=== PATIENT | male | born 1995 | race Two or more races ===

== ENCOUNTER 2024-07-10 17:17 | Emergency (ER) | payer MEDICAID, SELFPAY ==
--- NOTE | ~2024-07-10 | US_ITS ---
EXAMINATION: US ABDOMEN LIMITED CLINICAL INFORMATION: Right upper quadrant pain, leukocytosis and elevated LFTs.. COMPARISON: None available. TECHNIQUE: Real-time imaging of the right upper quadrant abdominal viscera. FINDINGS: PANCREAS: Visualized mid body of the pancreas is homogeneous in echotexture. LIVER: The liver is normal in size. The liver contour is normal. Parenchymal echogenicity is increased No focal hepatic lesion. There is no intrahepatic biliary duct dilatation seen. GALLBLADDER: The gallbladder is physiologically distended without evidence of stones, sludge, polyps, wall thickening or pericholecystic fluid. COMMON BILE DUCT: Normal in caliber measuring 0.3 cm in diameter. RIGHT KIDNEY: No hydronephrosis. No renal calculi or focal parenchymal lesions. The kidney measures 10.2 cm in maximum dimension. FREE FLUID: None. US/US abdomen limited IMPRESSION: Mild increased liver echogenicity but no focal lesion or intrahepatic ductal dilation. Gallbladder, right kidney and CBD appears unremarkable. The pancreas is suboptimally seen. Electronically signed by: Nirmal Enciso MD 07/10/2024 09:28 PM EST RP
[2024-07-10 17:23] VITALS: BP 130/98; PULSE 102; O2SAT 98
[2024-07-10 17:24] VITALS: BP 133/83; PULSE 103; RESP 18; TEMP 36.2; O2SAT 96; BMI 30.4
--- NOTE | 2024-07-10 17:36 | PC.NURSE ---
Pt. is reporting SI, citing he is sad because his girlfriend cheated on him . formula weigher aware and pt. changed over. regulatory attorney sitting as 1:1 observer.
--- NOTE | 2024-07-10 17:48 | PC.NURSE ---
Pt. changed over by cloud security architect. Per security, pt.'s belongings are inventoried and locked in the closet between the Pod and main ED.
--- NOTE | 2024-07-10 17:50 | PC.NURSE ---
garden consultant as 1:1
--- NOTE | 2024-07-10 18:18 | ECG_ITS ---
Test Reason : CHEST PAIN Blood Pressure : / mmHG Vent. Rate : 077 BPM Atrial Rate : 077 BPM P-R Int : 156 ms QRS Dur : 082 ms QT Int : 362 ms P-R-T Axes : 038 010 015 degrees QTc Int : 409 ms Normal sinus rhythm Normal ECG No previous ECGs available Referred By: Tawana Piper Electronically Signed By:WILLIAN PAYAN
[2024-07-10 18:48] LABS: Basophils Absolute Auto 0.1 X10*3/uL (0.0-0.2); Basophils Percent Auto 0.9 % (0-2); Eosinophils Absolute Auto 0.2 X10*3/uL (0.0-0.4); Eosinophils Percent Auto 1.7 % (0-4); Hematocrit 46.6 % (42.0-52.0); Hemoglobin 17.4 g/dl (14.0-18.0); Imm Gran Abs Auto 0.05 X10*3/uL (0.00-0.03); Imm Gran Pct Auto 0.4 % (0.0-0.4); Lymphocytes Absolute Auto 1.7 X10*3/uL (1.2-4.9); Lymphocytes Percent Auto 13.5 % (20-40); MANUAL DIFF FLAG SCAN; Mean Corpuscular HGB Conc 37.3 g/dl (31.0-36.0); Mean Corpuscular Hemoglobin 30.8 pg (27.0-33.0); Mean Corpuscular Volume 82.5 fL (80.0-98.0); Monocytes Absolute Auto 1.5 X10*3/uL (0.1-1.2); Monocytes Percent Auto 12.2 % (2-11); Neutrophils Percent Auto 71.3 % (45-73); Platelet Count 339 X10*3/uL (160-400); Red Blood Count 5.65 X10*6/uL (4.60-5.80); Red Cell Distribution Width 11.5 % (11.0-16.0); SCAN SMEAR FLAG 1; White Blood Count 12.6 X10*3/uL (4.8-10.8)
[2024-07-10 19:06] LABS: Ethanol < 10 mg/dL
[2024-07-10 19:10] LABS: Alanine Aminotransferase 51 U/L (0-40); Albumin Level 4.7 g/dL (3.5-5.0); Alkaline Phosphatase 89 U/L (39-117); Anion Gap 12 (12-20); Aspartate Amino Transferase 40 U/L (5-37); Bilirubin Total 3.9 mg/dL (0.0-1.0); Blood Urea Nitrogen 13 mg/dL (9-16); Calcium 9.4 mg/dL (8.4-10.2); Carbon Dioxide 27 mmol/L (22-29); Chloride 103 mmol/L (96-108); Creatinine Clr Calc Pharmacy 117.9; Estimated Glomerular Filt Rate > 60; Glucose Random 107 mg/dL (60-115); Potassium 3.6 mmol/L (3.3-5.1); Sodium 138 mmol/L (135-145); Total Protein 8.4 g/dL (6.5-8.0)
[2024-07-10 19:17] LABS: SLIDE REVIEW VERIFIED
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
[2024-07-10 22:36] VITALS: BP 115/81; PULSE 77; RESP 16; TEMP 36.8; O2SAT 98
[2024-07-10 22:57] LABS: Appearance Urine Clear; Color Urine Dark Yellow; Glucose Urine UA Negative (Negative); Leukocyte Esterase Urine Trace (Negative); Nitrite Urine Positive (Negative); PH 5.5 (5.0-9.0); Specific Gravity - Urine >= 1.030 (1.005-1.025); UMIC TRIGGER UACC YES; Urine Blood Trace (Negative); Urine Ketones Trace mg/dL (Negative); Urine Protein 30 (1+) mg/dL (Neg-Trace)
[2024-07-10 23:03] LABS: Amphetamine Screen Urine Not Detected (Not Detect); Barbiturates, Urine Not Detected (Not Detect); Benzodiazepines Screen Urine Not Detected (Not Detect); Buprenorphine Scr Not Detected (Not Detect); Cannabinoid Screen Urine Not Detected (Not Detect); Cocaine Screen Urine Not Detected (Not Detect); Fentanyl, urine Not Detected (Not Detect); Methadone Screen, Urine Not Detected (Not Detect); Opiate Screen Urine Not Detected (Not Detect); Oxycodone Screen Urine Not Detected (Not Detect); Phencyclidine Screen Urine Not Detected (Not Detect)
[2024-07-10 23:08] LABS: Bacteria Urine None Seen (None Seen); Calcium Oxalate Crystals Urine Present; RBC Urine 0-2 /HPF (0-2); Squamous Epithelial Cell Urine 0-2 /HPF (0-2); UACC Culture Trigger YES; WBC Urine 0-5 /HPF (0-5)
[2024-07-11] MEDS: Sulfamethox/Trimeth 800/160 TABLET 1 TAB PO (03:07)
--- NOTE | 2024-07-11 06:13 | PC.NURSE ---
Patient slept through the night, no distress observed/reported, currently not on any medication, VSS, patient was assessed by care team, disposition is CANDICE follow up, behavior pleasant, meds and meals compliant, will continue to monitor
[2024-07-11 06:26] VITALS: BP 139/82; PULSE 99; RESP 17; TEMP 36.8; O2SAT 97
--- NOTE | 2024-07-11 08:37 | MHC.CARE ---
Financially counseling emailed to meet with Pt for insurance as he is self pay at this time.
--- NOTE | 2024-07-11 08:54 | PC.NURSE ---
CARE team speaking with pt at this time
--- NOTE | 2024-07-11 09:35 | MHC.CARE ---
Pt does not meet [facility] at this time. He denies SI, HI, and A/V/H. A bed was secured for Pt at the [facility] and he is in agreement with this. Pt will be provided a Lyft ride to the [place] [facility]. Provider in agreement.
[2024-07-11 09:53] VITALS: BP 139/82; PULSE 99; RESP 17; TEMP 36.8; O2SAT 97
--- NOTE | 2024-07-11 10:41 | PC.NURSE ---
Pt called to arrange for antibiotic seed cone picker as he was d/c'd w/o antibiotics for UTI, Dr Norton aware. Pt agreeable to [facility] [address]
== END 2024-07-11 10:20 | disposition home or self-care (01) ==
PROVIDERS: Emergency Provider Emergency Medicine
DX: F33.1 Major depressive disorder, recurrent, moderate (principal); R45.851 Suicidal ideations; R10.2 Pelvic and perineal pain; Z59.02 Unsheltered homelessness; Z51.81 Encounter for therapeutic drug level monitoring; Z79.899 Other long term (current) drug therapy
CPT/HCPCS: 36415; 76705; 80053; 80307; 81001; 85025; 87086; 93005; 99285; S9485

== ENCOUNTER → 2024-07-10 18:18 | Outpatient (BNV) | payer SELFPAY | PROVIDERS: Emergency Provider Emergency Medicine; Visit Provider Internal Medicine | DX: R07.9 Chest pain, unspecified (principal) | CPT/HCPCS: 93010 ==

== ENCOUNTER 2024-08-07 16:47 | Emergency (ER) | payer OTHER, SELFPAY ==
[2024-08-07 17:00] VITALS: BP 125/90; BP 130/88; PULSE 81; PULSE 88; RESP 17; TEMP 36.9; O2SAT 96; O2SAT 99; BMI 30.9
--- NOTE | 2024-08-07 17:05 | ECG_ITS ---
Test Reason : WEAKNESS Blood Pressure : */* mmHG Vent. Rate : 74 BPM Atrial Rate : 74 BPM P-R Int : 134 ms QRS Dur : 72 ms QT Int : 356 ms P-R-T Axes : 21 27 28 degrees QTcB Int : 395 ms Normal sinus rhythm Normal ECG When compared with ECG of 10-Jul-2024 18:37, No significant change was found Referred By: Generic ED Physician Electronically Signed By: Linus Poe
[2024-08-07 17:41] LABS: MANUAL DIFF FLAG NO
[2024-08-07 17:42] LABS: Basophils Absolute Auto 0.1 X10*3/uL (0.0-0.2); Basophils Percent Auto 0.9 % (0-2); Eosinophils Absolute Auto 0.1 X10*3/uL (0.0-0.4); Eosinophils Percent Auto 0.7 % (0-4); Hematocrit 45.1 % (42.0-52.0); Hemoglobin 16.2 g/dl (14.0-18.0); Imm Gran Abs Auto 0.05 X10*3/uL (0.00-0.03); Imm Gran Pct Auto 0.5 % (0.0-0.4); Lymphocytes Absolute Auto 1.2 X10*3/uL (1.2-4.9); Lymphocytes Percent Auto 11.4 % (20-40); Mean Corpuscular HGB Conc 35.9 g/dl (31.0-36.0); Mean Corpuscular Hemoglobin 30.5 pg (27.0-33.0); Mean Corpuscular Volume 84.9 fL (80.0-98.0); Mean Platelet Volume 9.3 fL (9.4-12.4); Monocytes Absolute Auto 0.9 X10*3/uL (0.1-1.2); Monocytes Percent Auto 8.5 % (2-11); Neutrophils Absolute Auto 8.2 x10*3/uL (2.0-8.3); Platelet Count 274 X10*3/uL (160-400); Red Blood Count 5.31 X10*6/uL (4.60-5.80); Red Cell Distribution Width 11.9 % (11.0-16.0); White Blood Count 10.5 X10*3/uL (4.8-10.8)
--- NOTE | 2024-08-07 17:44 | PC.NURSE ---
pt from home, presents with global weakness, slow to respond. reports he saw his mom today who from a CVA last year per pt. pt is tearful. he reports that he is scared he has schizophrenia. notified DO Zaid of pts presentation, neuros intact but minimal responsiveness. unsure if behavioral response.
--- NOTE | 2024-08-07 17:48 | ED_ITS ---
HPI - Weakness General Chief complaint: Weakness Stated complaint: TREMORS Time Seen by Provider: 08/07/24 17:14 Source: patient Mode of arrival: EMS Limitations: no limitations History of Present Illness HPI Narrative: 29-year-old male presents emergency department with question of tremors and hallucinations. He states he lost his mom last year in November and had a bad strained relationship and he never told her how he felt. Patient states today he was at home and he felt like he saw her and talked to her and she told him she still lift him initially became very emotional who arrived here similar to his presentation last month where he was not moving any of his extremities he complain of global weakness inability to even open his tongue he denies any falls injuries he denies chest pain or shortness breath he denies any cough he denies any drug use or changes in medications his symptoms were much worse when he initially arrived and improved gradually the after being seen he was worried that he was having a stroke in his blood sugar is low his blood sugar has been stable here we did feed the patient and he has no signs of a stroke with just generalized weakness everywhere Complaint: generalized weakness Related Data Home Medications ?Medication ?Instructions ?Recorded ?Confirmed No Known Home Meds 07/11/24 07/11/24 Allergies Allergy/AdvReac Type Severity Reaction Status Date / Time No Known Allergies Allergy Verified 08/07/24 17:02 Review of Systems 2 Review of Systems: Review of systems: General: Generalized weakness Patient denies any fever chills recent illness or falls Musculoskeletal: Denies back pain or body aches or other injuries HEENT: denies headache, runny nose, ear pain Respiratory: denies shortness of breath, cough Cardiovascular: no chest pain or palpitations : denies dysuria, frequency Abdomen: no nausea vomiting denies abdominal pain Extremities: no swelling, no pain Skin: no diaphoresis Yes all other systems are reviewed and are negative [facility] Social History Social History Smoked in Last 30 Days: Yes Use of substances other than those prescribed or required for medical reasons: No Advance Directives: No Advance Directives Information Provided: No Do you have a plan to hurt others: No Plan Physical Exam 2 Vital Signs: Vital Signs: Last Vital Signs Temp 98.0 F 08/07/24 19:22 Pulse 83 08/07/24 19:22 Resp 18 08/07/24 19:22 BP 121/77 08/07/24 19:22 Pulse Ox 97 08/07/24 19:22 O2 Del Method Room Air 08/07/24 19:22 BMI result Body Mass Index 30.9 Neurological exam: CN II- XII tested. Patient is alert and oriented to person place and time. Patient has no dysphagia or dysarthia, denies good vision in all four vision mckinney no nystagmus on exam, good strength to upper and lower extremities with normal reflexes to brachioradialis, wrist, patella and achilles. Negative romberg, good finger to nose and heel to horta. General: Well-appearing well-nourished in no signs of distress HEENT: Normocephalic atraumatic Neck: No signs of JVD, no masses no tenderness or lymphadenopathy Cardiovascular: Regular rate and rhythm Respiratory: Clear to auscultation bilaterally Abdomen: Soft nontender no masses Extremities: Normal pedal pulses no signs of edema Skin: Dry warm no rashes Back: No tenderness full ROM Course Course Course Narrative: Patient seen by care team patient denies SI or HI patient only was asking for social security and was not complaining of any focal symptoms to them I do feel comfortable discharging the patient home have the patient follow up with his doctor for Medical Decision Making Medical Decision Making MDM Narrative: Has a completely normal neuro exam patient is a stroke but with global symptoms is very unlikely there was nothing that is one-sided or asymmetric on the patient he looks well has completely normal vitals and was here for similar less than a month ago. I do feel comfortable just checking labs I think the patient would benefit from behavioral health evaluation Differential Diagnosis Differential Diagnoses: The differential diagnosis associated with the presentation includes Weakness dehydration acute psychosis depression anxiety electrolyte abnormality Consult Healthcare Provider Management of the patient was discussed with: Hospitalist and Behavioral Health Provider Lab Data [facility] Lab Attestation statement: I reviewed the patient's lab results. 08/07/24 17:34 08/07/24 17:34 Labs: Lab Results 08/07/24 08/07/24 Range/Units 17:34 18:53 WBC 10.5 (4.8-10.8) X10*3/uL RBC 5.31 (4.60-5.80) X10*6/uL Hgb 16.2 (14.0-18.0) g/dl Hct 45.1 (42.0-52.0) % MCV 84.9 (80.0-98.0) fL MCH 30.5 (27.0-33.0) pg MCHC 35.9 (31.0-36.0) g/dl RDW 11.9 (11.0-16.0) % Plt Count 274 (160-400) X10*3/uL MPV 9.3 L (9.4-12.4) fL Immature Gran % (Auto) 0.5 H (0.0-0.4) % Neut % (Auto) 78.0 H (45-73) % Lymph % (Auto) 11.4 L (20-40) % [place] % (Auto) 8.5 (2-11) % Eos % (Auto) 0.7 (0-4) % Baso % (Auto) 0.9 (0-2) % Lymph # (Auto) 1.2 (1.2-4.9) X10*3/uL [place] # (Auto) 0.9 (0.1-1.2) X10*3/uL Eos # (Auto) 0.1 (0.0-0.4) X10*3/uL Baso # (Auto) 0.1 (0.0-0.2) X10*3/uL Abs Immat Gran (auto) 0.05 H (0.00-0.03) X10*3/uL Absolute Neuts (auto) 8.2 (2.0-8.3) x10*3/uL Absolute Nucleated RBC 0.000 (0.0-0.012) X10*3/uL Nucleated RBC % (auto) 0.0 (0.0-0.2) /100WBC Sodium 142 (135-145) mmol/L Potassium 4.2 (3.3-5.1) mmol/L Chloride 111 H (96-108) mmol/L Carbon Dioxide 28 (22-29) mmol/L Anion Gap 7 L (12-20) BUN 10 (9-16) mg/dL Creatinine 0.79 (0.5-1.4) mg/dL Estim Creat Clear Calc 150.6 Estimated GFR > 60 Random Glucose 100 (60-115) mg/dL Lactic Acid 1.4 (0.5-2.0) mmol/L Calcium 9.2 (8.4-10.2) mg/dL Magnesium 2.1 (1.6-2.6) mg/dL Total Bilirubin 2.1 H (0.0-1.0) mg/dL AST 23 (5-37) U/L ALT 31 (0-40) U/L Alkaline Phosphatase 83 (39-117) U/L Troponin I High Sens < 2.7 (<3.5-35.0) ng/L Total Protein 7.7 (6.5-8.0) g/dL Albumin 4.4 (3.5-5.0) g/dL Lipase 15 (8-78) U/L Urine Color Yellow Urine Appearance Clear Urine pH 7.5 (5.0-9.0) Ur Specific [place] 1.020 (1.005-1.025) Urine Protein Negative (Neg-Trace) mg/dL Urine Glucose (UA) Negative (Negative) mg/dL Urine Ketones Negative (Negative) mg/dL Urine Blood Negative (Negative) Urine Nitrite Negative (Negative) Ur Leukocyte Esterase Negative (Negative) Urine Opiates Screen Not Detected (Not Detect) Ur Buprenorphine Scrn Not Detected (Not Detect) ng/mL Ur Oxycodone Screen Not Detected (Not Detect) ng/mL Urine Methadone Screen Not Detected (Not Detect) ng/mL Urine Fentanyl Screen Not Detected (Not Detect) Ur Barbiturates Screen Not Detected (Not Detect) Ur Phencyclidine Scrn Not Detected (Not Detect) Ur Amphetamines Screen Not Detected (Not Detect) U Benzodiazepines Scrn Not Detected (Not Detect) Urine Cocaine Screen Not Detected (Not Detect) U Marijuana (THC) Screen Not Detected (Not Detect) Influenza Type A (PCR) NEGATIVE (Negative) Influenza Type B (PCR) NEGATIVE (Negative) RSV RNA Qual (PCR) NEGATIVE (Negative) SARS-CoV-2 RNA (RT-PCR) NEGATIVE (Negative) External Record Review External record reviewed: Inpatient record, Office record, Outpatient record and Prior outpatient labs Discharge Plan Discharge Clinical Impression: Hallucination, Acute dehydration, Weakness Patient Disposition: Home, Self-Care Instructions: Hallucinations (ED), Dehydration (ED), Weakness (ED) Additional Instructions: You were seen today for global weakness. You did not have a stroke. I do think this is related to anxiety and depression. Please call follow up with outpatient therapy Prescriptions: No Action No Known Home Meds Print Language: Cambodian
[2024-08-07 18:03] LABS: Lactic Acid 1.4 mmol/L (0.5-2.0)
[2024-08-07 18:05] LABS: Alanine Aminotransferase 31 U/L (0-40); Albumin Level 4.4 g/dL (3.5-5.0); Alkaline Phosphatase 83 U/L (39-117); Anion Gap 7 (12-20); Aspartate Amino Transferase 23 U/L (5-37); Bilirubin Total 2.1 mg/dL (0.0-1.0); Blood Urea Nitrogen 10 mg/dL (9-16); Calcium 9.2 mg/dL (8.4-10.2); Carbon Dioxide 28 mmol/L (22-29); Chloride 111 mmol/L (96-108); Creatinine Clr Calc Pharmacy 150.6; Estimated Glomerular Filt Rate > 60; Glucose Random 100 mg/dL (60-115); Lipase 15 U/L (8-78); Magnesium 2.1 mg/dL (1.6-2.6); Potassium 4.2 mmol/L (3.3-5.1); Sodium 142 mmol/L (135-145); Total Protein 7.7 g/dL (6.5-8.0)
[2024-08-07 18:17] LABS: Troponin-I High Sensitivity < 2.7 ng/L (<3.5-35.0)
[2024-08-07 18:21] LABS: Influenza A PCR NEGATIVE (Negative); Influenza B PCR NEGATIVE (Negative); Resp Syncy Virus RNA Qual PCR NEGATIVE (Negative); SARS COV2 PCR INHOUSE NEGATIVE (Negative)
[2024-08-07 19:04] LABS: Appearance Urine Clear; Color Urine Yellow; Glucose Urine UA Negative (Negative); Leukocyte Esterase Urine Negative (Negative); Nitrite Urine Negative (Negative); PH 7.5 (5.0-9.0); Urine Blood Negative (Negative); Urine Ketones Negative (Negative); Urine Protein Negative (Neg-Trace)
[2024-08-07 19:12] LABS: Amphetamine Screen Urine Not Detected (Not Detect); Barbiturates, Urine Not Detected (Not Detect); Benzodiazepines Screen Urine Not Detected (Not Detect); Buprenorphine Scr Not Detected (Not Detect); Cannabinoid Screen Urine Not Detected (Not Detect); Cocaine Screen Urine Not Detected (Not Detect); Fentanyl, urine Not Detected (Not Detect); Methadone Screen, Urine Not Detected (Not Detect); Opiate Screen Urine Not Detected (Not Detect); Oxycodone Screen Urine Not Detected (Not Detect); Phencyclidine Screen Urine Not Detected (Not Detect)
[2024-08-07 19:22] VITALS: BP 121/77; PULSE 83; RESP 18; TEMP 36.7; O2SAT 97
--- NOTE | 2024-08-07 19:23 | MHC.EDTECH ---
This tech took over care of pt at 1900,rounded and introduced self to pt,vitals taken,emptied 250MLS from urinal,pt appears comfortable,resting quietly family at bedside,call sarah in reach
[2024-08-07] MEDS: Acetaminophen 325 MG TABLET 650 MG PO (20:20)
[2024-08-07 20:21] VITALS: BP 111/59; PULSE 75; RESP 16; TEMP 36.6; O2SAT 97
[2024-08-07 20:29] VITALS: BP 111/59; PULSE 75; RESP 16; TEMP 36.6; O2SAT 97
--- NOTE | 2024-08-07 21:03 | MHC.CARE ---
[facility] referral completed and faxed over. [facility] confirms referral was received and will be reviewed.
== END 2024-08-07 20:40 | disposition home or self-care (01) ==
PROVIDERS: Emergency Provider Student in an Organized Health Care Education/Training Program
DX: R44.3 Hallucinations, unspecified (principal); E86.0 Dehydration; R53.1 Weakness; Z03.818 Encounter for observation for suspected exposure to other biological agents ruled out; F32.A Depression, unspecified; F43.29 Adjustment disorder with other symptoms; F90.9 Attention-deficit hyperactivity disorder, unspecified type; F41.9 Anxiety disorder, unspecified; Z87.891 Personal history of nicotine dependence
CPT/HCPCS: 0241U; 80053; 80307; 81003; 83605; 83690; 83735; 84484; 85025; 93005; 99285; S9485

== ENCOUNTER → 2024-08-07 17:05 | Outpatient (BNV) | payer OTHER, SELFPAY | PROVIDERS: Emergency Provider Student in an Organized Health Care Education/Training Program; Visit Provider Internal Medicine Cardiovascular Disease | DX: R53.1 Weakness (principal) | CPT/HCPCS: 93010 ==

== ENCOUNTER 2024-08-20 09:50 | Inpatient (IN) | payer OTHER, SELFPAY ==
[2024-08-20] VITALS (9 sets, daily range): BP systolic 112–139; BP diastolic 59–86; PULSE 82–123; RESP 17–24; TEMP 36.3–38.7; O2SAT 95–99; BMI 31.6
--- NOTE | ~2024-08-20 | XR_ITS ---
EXAMINATION: XR CHEST CLINICAL INFORMATION: cough, sob COMPARISON: None available. TECHNIQUE: 2 views of the chest were obtained. FINDINGS: The cardiac, hilar, and mediastinal contours are normal. There are low lung volumes, with mild bronchovascular crowding in the perihilar regions and lower lobes. Within these confines, there is no focal opacity to suggest pneumonia. Suggestion of mild diffuse peribronchial thickening. There is no pneumothorax or pleural effusion. There is no focal osseous or soft tissue abnormality. XR/XR chest 2V IMPRESSION: 1. Low lung volumes, with bronchovascular crowding in the hilar regions and lower lungs. Suggestion of diffuse mild peribronchial thickening. 2. No focal pneumonia or effusion. Electronically signed by: Edson Morton MD 08/20/2024 11:20 AM [facility]
--- NOTE | 2024-08-20 10:11 | ECG_ITS ---
Test Reason : TACHYCARDIA/SOB Blood Pressure : */* mmHG Vent. Rate : 113 BPM Atrial Rate : 113 BPM P-R Int : 144 ms QRS Dur : 70 ms QT Int : 294 ms P-R-T Axes : 45 20 38 degrees QTcB Int : 403 ms Sinus tachycardia Otherwise normal ECG When compared with ECG of 07-Aug-2024 17:19, Vent. rate has increased by 39 bpm Referred By: Rebekah Yang Electronically Signed By: WILLIAN PAYAN
--- NOTE | 2024-08-20 10:22 | ED_ITS ---
HPI - General Adult General Chief complaint: Nausea/Vomiting/Diarrhea Stated complaint: DIZZY,WEAK SINCE T-1 FROM CLINIC PER EMS Time Seen by Provider: 08/20/24 09:54 Source: patient, EMS, RN notes reviewed and old records reviewed Mode of arrival: EMS History of Present Illness ED Provider: Rebekah Yang PA-C HPI narrative: 29-year-old male with no significant past medical history presenting to the ED via EMS from [facility] complaining of lightheadedness, dizziness, CP, SOB, productive cough, fever, abdominal pain, nausea, vomiting, diarrhea x yesterday. Denies taking any medications today. Admits suzette is home sick with similar symptoms. Denies recent travel, suspicious food intake, pedal edema Related Data Home Medications ?Medication ?Instructions ?Recorded ?Confirmed No Known Home Meds 07/11/24 07/11/24 Allergies Allergy/AdvReac Type Severity Reaction Status Date / Time No Known Allergies Allergy Verified 08/20/24 10:04 Review of Systems 2 Review of Systems: Yes all other systems are reviewed and are negative Constitutional: Constitutional: Reports as per HPI Neurologic: Denies Abnormal speech present [facility] Past Medical History Attestation statement: The following information was validated with the patient. Source: old records reviewed Medical History (Updated 08/20/24 @ 12:28 by KIMBER Gonsalez) Depression Anxiety ADHD Social History Social History Smoked in Last 30 Days: Yes Use of substances other than those prescribed or required for medical reasons: No Advance Directives: No Advance Directives Information Provided: Yes Do you have a plan to hurt others: No Plan Physical Exam ED Vital Signs: Vital Signs - 24 hr 08/20/24 09:59 08/20/24 10:03 Temperature 101.7 F H 100.7 F H Pulse Rate 123 H 123 H Respiratory Rate 23 H 18 Blood Pressure 126/86 126/86 Pulse Oximetry 97 97 Oxygen Delivery Method Nasal Cannula Nasal Cannula Oxygen Flow Rate 3 BMI result Body Mass Index 31.6 Const General: cooperative, healthy appearing and no acute distress Orientation/consciousness: patient oriented x3 Limitations: no limitations HENMT Head: Yes normal to inspection and Yes atraumatic Ears: hearing grossly normal bilaterally General nose exam: Normal external nose present Face and sinus: Yes normal facial exam Mouth: Normal oral and palatal mucosa present and no drooling Throat: Yes posterior oropharynx normal and Yes uvula midline Eyes General: appearance normal, both eyes and all related structures EOM: EOMs intact bilaterally Neck Neck: Yes normal visual inspection and Yes no meningeal signs Resp Effort & Inspection: normal respiratory effort and no respiratory distress Auscultation: clear to auscultation bilaterally and no wheezes Cardio Rate: regular rate and tachycardic Heart sounds: S1 normal heart sound present and S2 normal heart sound present GI Inspection: Yes normal to inspection Palpation (GI): Soft to palpation, Tenderness to palpation present (GI) (Diffusely) with no rebound tenderness, no guarding and not rigid Skin Rashes: no rashes Wounds: no wounds Neuro General: patient oriented x3, tone normal, moves all extremities, no meningeal signs, no focal motor deficits and CN's II-XI intact bilaterally Cranial nerves: Yes CN's II-XII intact bilaterally and Yes Bilaterally intact EOM present Cognition (Neuro): normal cognition Speech: No Abnormal speech present Motor exam (neuro): 5/5 motor strength present throughout Extrem General: Yes normal to inspection and Yes no pedal edema Course Course Course Narrative: -1119--no leukocytosis. D-dimer 214 > PE unlikely -lactic acidosis 3.2 > will give IVF and repeat. Troponin negative. -influenza A positive > Tamiflu ordered -1136--on re-evaluation abdomen is soft and nontender. No CT indicated at this time. Medications Administered Discontinued Medications Generic Name Dose Route Start Last Admin Trade Name Freq PRN Reason Stop Dose Admin Acetaminophen 650 mg 08/20/24 10:27 08/20/24 11:18 Acetaminophen 325 Mg Tablet PO 08/20/24 10:28 650 mg ONCE ONE Administration Ceftriaxone Sodium 1 gm 08/20/24 10:11 08/20/24 10:28 Ceftriaxone Sodium 1 Gm Vial IVPUSH 08/20/24 10:12 1 gm ONCE ONE Administration Sodium Chloride 1,000 mls @ 999 mls/hr 08/20/24 10:15 08/20/24 11:38 Ns IV 08/20/24 11:15 Infused .Q1H1M ZAINAB Infusion Sodium Chloride 1,000 mls @ 999 mls/hr 08/20/24 11:00 08/20/24 12:21 Ns IV 08/20/24 12:00 Infused .Q1H1M ZAINAB Infusion Oseltamivir Phosphate 75 mg 08/20/24 11:14 08/20/24 12:00 Oseltamivir Phosphate 75 Mg Capsule PO 08/20/24 11:15 75 mg ONCE ONE Administration Medical Decision Making Medical Decision Making [facility] Narrative: 29-year-old male with no significant past medical history presenting to the ED via EMS from [facility] complaining of lightheadedness, dizziness, CP, SOB, productive cough, fever, abdominal pain, nausea, vomiting, diarrhea x yesterday. On exam tachycardic, tachypneic, febrile to 101.7, hypoxic 90% on RA, lungs CTA, abdomen soft diffusely tender, no pedal edema. Concern for viral illness vs pneumonia vs bronchitis vs intra-abdominal pathology including pancreatitis/cholecystitis/lithiasis, appendicitis/diverticulitis or gastroenteritis. PE on differential. Lower suspicion for DVT or dissection Plan: EKG, labs, UA, CXR, viral testing, +/-CT AP, +/-CTA, ED bronch protocol, empiric IV antibiotics, IVF, anticipate admission Please refer to course for remaining clinical decision making, interpretation of labs/imaging results, and discussions with consultants and/or family members. Differential Diagnosis Differential Diagnoses: The differential diagnosis associated with the presentation includes As above Admission/Observation Consideration of admission/observation: Escalation of care including admission/observation considered Consult Healthcare Provider Management of the patient was discussed with: Hospitalist Lab Data [facility] Lab Attestation statement: I reviewed the patient's lab results. 08/20/24 10:17 08/20/24 10:17 Labs: Lab Results 08/20/24 08/20/24 08/20/24 Range/Units 10:17 10:18 10:25 WBC 7.7 (4.8-10.8) X10*3/uL RBC 5.20 (4.60-5.80) X10*6/uL Hgb 15.9 (14.0-18.0) g/dl Hct 44.4 (42.0-52.0) % MCV 85.4 (80.0-98.0) fL MCH 30.6 (27.0-33.0) pg MCHC 35.8 (31.0-36.0) g/dl RDW 11.9 (11.0-16.0) % Plt Count 257 (160-400) X10*3/uL MPV 9.3 L (9.4-12.4) fL Immature Gran % (Auto) 0.3 (0.0-0.4) % Neut % (Auto) 75.3 H (45-73) % Lymph % (Auto) 10.5 L (20-40) % [place] % (Auto) 13.2 H (2-11) % Eos % (Auto) 0.1 (0-4) % Baso % (Auto) 0.6 (0-2) % Lymph # (Auto) 0.8 L (1.2-4.9) X10*3/uL [place] # (Auto) 1.0 (0.1-1.2) X10*3/uL Eos # (Auto) 0.0 (0.0-0.4) X10*3/uL Baso # (Auto) 0.1 (0.0-0.2) X10*3/uL Abs Immat Gran (auto) 0.02 (0.00-0.03) X10*3/uL Absolute Neuts (auto) 5.8 (2.0-8.3) x10*3/uL Absolute Nucleated RBC 0.000 (0.0-0.012) X10*3/uL Nucleated RBC % (auto) 0.0 (0.0-0.2) /100WBC PT 19.2 H (10.9-12.4) SEC INR 1.6 H (0.9-1.1) D-Dimer High Sensitivty 214 NG/ML VBG pH 7.42 (7.32-7.43) VBG pCO2 36 mmHg VBG pO2 47 mmHg VBG HCO3 24 (22-26) mmol/L VBG O2 Saturation 83.0 % VBG Base Excess 0.0 mmol/L Sodium 138 (135-145) mmol/L Potassium 3.5 (3.3-5.1) mmol/L Chloride 108 (96-108) mmol/L Carbon Dioxide 21 L (22-29) mmol/L Anion Gap 13 (12-20) BUN 12 (9-16) mg/dL Creatinine 1.24 (0.5-1.4) mg/dL Estim Creat Clear Calc 93.9 Estimated GFR > 60 Random Glucose 139 H (60-115) mg/dL Lactic Acid 3.2 H* (0.5-2.0) mmol/L Calcium 8.9 (8.4-10.2) mg/dL Magnesium 1.9 (1.6-2.6) mg/dL Total Bilirubin 1.9 H (0.0-1.0) mg/dL Direct Bilirubin 0.5 (0.0-0.5) mg/dL AST 23 (5-37) U/L ALT 26 (0-40) U/L Alkaline Phosphatase 83 (39-117) U/L Troponin I High Sens < 2.7 (<3.5-35.0) ng/L B-Natriuretic Peptide < 10 (<100) pg/mL Total Protein 7.9 (6.5-8.0) g/dL Albumin 4.4 (3.5-5.0) g/dL Lipase 13 (8-78) U/L Influenza Type A (PCR) POSITIVE A (Negative) Influenza Type B (PCR) NEGATIVE (Negative) RSV RNA Qual (PCR) NEGATIVE (Negative) SARS-CoV-2 RNA (RT-PCR) NEGATIVE (Negative) Independent Interpretation I performed an independent interpretation of an: EKG, Plain X-Ray and CT Scan Radiology Impression Discussion of test interpretation with radiology: I have reviewed the radiologist's reading. Independent Historian Clinical information obtained from an independent historian. History obtained from or confirmed by: EMS External Record Review External record reviewed: Inpatient record, Office record, Outpatient record, Prior outpatient labs, Prior outpatient radiology, Primary care record and Outside ED record Tests considered The following testing was considered but not selected: As above Prescription Management I considered prescription management with: Pain Medication and Antibiotic Chronic Conditions Patient?s care impacted by: Other Social Determinants Patient?s care significantly limited by Social Determinants of Health including: Inadequate housing, Low income, Problems related to primary support group and Other Social Determinant of Health Critical Care Time Critical Care Time Critical Care Time: Yes Total Critical Care Time: 45 Attestation: I have personally provided critical care time exclusive of time spent on separately billable procedures. Time includes review of lab data, radiology results, discussion with consultants, and monitoring for potential decompensation. Intervention performed as documented. Discharge Plan Discharge Clinical Impression: Influenza A, Hypoxia Patient Disposition: Admitted As Inpatient
[2024-08-20 10:28] LABS: MANUAL DIFF FLAG NO
[2024-08-20] MEDS: 0.9 % Sodium Chloride 1,000 ML 999 ML IV ×2 (10:28→11:17)
[2024-08-20] MEDS: cefTRIAXone sodium 1 GM VIAL IVPUSH (10:28)
[2024-08-20 10:30] LABS: VBG HCO3 24 mmol/L (22-26); VBG pCO2 36 mmHg; VBG pH 7.42 (7.32-7.43); VBG pO2 47 mmHg
[2024-08-20 10:30] LABS: Venous Blood Gas Refer to POC result
[2024-08-20 10:34] LABS: Basophils Absolute Auto 0.1 X10*3/uL (0.0-0.2); Basophils Percent Auto 0.6 % (0-2); Eosinophils Percent Auto 0.1 % (0-4); Hematocrit 44.4 % (42.0-52.0); Hemoglobin 15.9 g/dl (14.0-18.0); Imm Gran Abs Auto 0.02 X10*3/uL (0.00-0.03); Imm Gran Pct Auto 0.3 % (0.0-0.4); Lymphocytes Absolute Auto 0.8 X10*3/uL (1.2-4.9); Lymphocytes Percent Auto 10.5 % (20-40); Mean Corpuscular HGB Conc 35.8 g/dl (31.0-36.0); Mean Corpuscular Hemoglobin 30.6 pg (27.0-33.0); Mean Corpuscular Volume 85.4 fL (80.0-98.0); Mean Platelet Volume 9.3 fL (9.4-12.4); Monocytes Percent Auto 13.2 % (2-11); Neutrophils Absolute Auto 5.8 x10*3/uL (2.0-8.3); Neutrophils Percent Auto 75.3 % (45-73); Platelet Count 257 X10*3/uL (160-400); Red Cell Distribution Width 11.9 % (11.0-16.0); White Blood Count 7.7 X10*3/uL (4.8-10.8)
[2024-08-20 10:38] LABS: INTERNATIONAL NORM RATIO 1.6 (0.9-1.1); Prothrombin Time 19.2 SEC (10.9-12.4)
[2024-08-20 10:51] LABS: Lactic Acid 3.2 mmol/L (0.5-2.0)
[2024-08-20 10:51] LABS: Alanine Aminotransferase 26 U/L (0-40); Albumin Level 4.4 g/dL (3.5-5.0); Alkaline Phosphatase 83 U/L (39-117); Anion Gap 13 (12-20); Aspartate Amino Transferase 23 U/L (5-37); Bilirubin Direct 0.5 mg/dL (0.0-0.5); Bilirubin Total 1.9 mg/dL (0.0-1.0); Blood Urea Nitrogen 12 mg/dL (9-16); Calcium 8.9 mg/dL (8.4-10.2); Carbon Dioxide 21 mmol/L (22-29); Chloride 108 mmol/L (96-108); Creatinine Clr Calc Pharmacy 93.9; Estimated Glomerular Filt Rate > 60; Glucose Random 139 mg/dL (60-115); Lipase 13 U/L (8-78); Magnesium 1.9 mg/dL (1.6-2.6); Potassium 3.5 mmol/L (3.3-5.1); Sodium 138 mmol/L (135-145); Total Protein 7.9 g/dL (6.5-8.0)
[2024-08-20 10:56] LABS: B Type Natriuretic Peptide < 10 pg/mL (<100)
[2024-08-20 11:00] LABS: Troponin-I High Sensitivity < 2.7 ng/L (<3.5-35.0)
[2024-08-20 11:08] LABS: D Dimer High Sensitivity 214 NG/ML
[2024-08-20 11:10] LABS: Influenza A PCR POSITIVE (Negative); Influenza B PCR NEGATIVE (Negative); Resp Syncy Virus RNA Qual PCR NEGATIVE (Negative); SARS COV2 PCR INHOUSE NEGATIVE (Negative)
[2024-08-20] MEDS: Acetaminophen 325 MG TABLET 650 MG PO ×2 (11:18→23:11)
--- NOTE | 2024-08-20 11:38 | PC.NURSE ---
Additional fluid bolus ordered - pending sepsis BPs
--- NOTE | 2024-08-20 11:46 | P.HPHOSP_ITS ---
History of Present Illness Date of Service: 08/20/24 Attending physician on admission: Massimo Kumar Chief Complaint: Nausea, vomiting, dizziness Pt is a 29-year-old male with PMH significant for anxiety and depression not on home meds who presents to the ED via ambulance from walk-in clinic for evaluation of N/V/D and dizziness since yesterday. Has also been experiencing SOB, productive cough, fever and chills, chest tightness/pain, and abdominal pain. Has not be able to keep any food or drink down since then. Reports family members in household have similar symptoms for past 1-2 weeks. Previous smoker without pulmonary diagnosis or home inhalers. In the ED pt was febrile up to 101.7, tachycardic up to 123, tachypneic up to 23, desatting as low as 90% at walk-in clinic. Labs were significant for testing positive for flu, creatinine 1.24 (elevated from 0.79 on 08/07/2024), lactic acid 3.2, and bilirubin 1.9. No leukocytosis. Stable H&H. No significant electrolyte abnormalities. Troponin negative. BNP negative. CXR showed diffuse mild peribronchial thickening without focal pneumonia or effusion. EKG demonstrated sinus tachycardia of 113 without any significant ischemic changes. Pt was treated with IVF, acetaminophen, empiric ceftriaxone, and Tamiflu. Pt will be admitted to the hospital under observation for treatment and further evaluation of KRUNAL in the setting of acute influenza a infection. Review of Systems 2 Review of Systems: Negative except for that which is stated in the [facility] Medical History (Updated 08/20/24 @ 12:28 by KIMBER Gonsalez) Depression Anxiety ADHD Social History Smoked in Last 30 Days: Yes Use of substances other than those prescribed or required for medical reasons: No Advance Directives: No Advance Directives Information Provided: Yes Do you have a plan to hurt others: No Plan Meds Allergies Allergy/AdvReac Type Severity Reaction Status Date / Time No Known Allergies Allergy Verified 08/20/24 10:04 Active Medications: Current Medications Sodium Chloride (Ns) 1,000 mls @ 999 mls/hr IV .Q1H1M ZAINAB Stop: 08/20/24 12:00 Last Admin: 08/20/24 11:17 Dose: 999 mls/hr Home Medications ?Medication ?Instructions ?Recorded ?Confirmed ?Last Taken ?Type No Known Home Meds 07/11/24 07/11/24 Unknown History Physical Exam 2 Vital Signs and Narrative: Vital Signs: Last Vital Signs Temp 100.7 F H 08/20/24 10:03 Pulse 123 H 08/20/24 10:03 Resp 18 08/20/24 10:03 BP 126/86 08/20/24 10:03 Pulse Ox 97 08/20/24 10:03 O2 Del Method Nasal Cannula 08/20/24 10:03 O2 Flow Rate 3 08/20/24 09:59 Oxygen Flow Rate 2 08/20/24 10:03 BMI result Body Mass Index 31.6 General: AOx3, appears weak. In no acute distress Resp: CTA bilaterally CVS: S1, S2, regular rhythm, tachycardic GI: +BS, no distention, diffusely tender Skin: Warm, dry Neuro: Cranial nerves II-XII grossly intact bilaterally. Motor grossly intact bilaterally Extremities: No edema Psych: Anxious Results Labs 08/20/24 10:17 08/20/24 10:17 Labs: Laboratory Results - last 24 hr 08/20/24 08/20/24 08/20/24 10:17 10:18 10:25 MCV 85.4 MCH 30.6 MCHC 35.8 RDW 11.9 Plt Count 257 MPV 9.3 L Immature Gran % (Auto) 0.3 Neut % (Auto) 75.3 H Lymph % (Auto) 10.5 L [place] % (Auto) 13.2 H Eos % (Auto) 0.1 Baso % (Auto) 0.6 Lymph # (Auto) 0.8 L [place] # (Auto) 1.0 Eos # (Auto) 0.0 Baso # (Auto) 0.1 Abs Immat Gran (auto) 0.02 Absolute Neuts (auto) 5.8 Absolute Nucleated RBC 0.000 Nucleated RBC % (auto) 0.0 PT 19.2 H INR 1.6 H D-Dimer High Sensitivty 214 VBG pH 7.42 VBG pCO2 36 VBG pO2 47 VBG HCO3 24 VBG O2 Saturation 83.0 VBG Base Excess 0.0 Anion Gap 13 Estim Creat Clear Calc 93.9 Estimated GFR > 60 Random Glucose 139 H Lactic Acid 3.2 H* Calcium 8.9 Magnesium 1.9 Total Bilirubin 1.9 H Direct Bilirubin 0.5 AST 23 ALT 26 Alkaline Phosphatase 83 Troponin I High Sens < 2.7 B-Natriuretic Peptide < 10 Total Protein 7.9 Albumin 4.4 Lipase 13 Influenza Type A (PCR) POSITIVE A Influenza Type B (PCR) NEGATIVE RSV RNA Qual (PCR) NEGATIVE SARS-CoV-2 RNA (RT-PCR) NEGATIVE Imaging Radiologist's Impressions: Impressions Chest X-Ray 08/20/24 10:13 IMPRESSION: 1. Low lung volumes, with bronchovascular crowding in the hilar regions and lower lungs. Suggestion of diffuse mild peribronchial thickening. 2. No focal pneumonia or effusion. Electronically signed by: Edson Morton MD 08/20/2024 11:20 AM [facility] Assessment and Plan (1) Influenza A: Status: Acute (2) KRUNAL (acute kidney injury): Status: Acute Plan Pt is a 29-year-old male with PMH significant for anxiety and depression not on home meds who presents to the ED via ambulance from walk-in clinic for evaluation of N/V/D and dizziness since yesterday. Pt will be admitted to the hospital under observation for treatment and further evaluation of KRUNAL in the setting of acute influenza a infection. Influenza a infection Pt with SOB, dizziness, N/V/D, productive abdominal pain x2 days Desatting as low at 90% on RA, currently satting at 92-93% on RA Will treat with supportive care at Tamiflu, started 08/20/2024 Titrate supplemental O2 >92, wean as tolerated KRUNAL Creatinine 1.24, elevated from 0.79 on 08/07/2024 Secondary to GI losses from flu and poor p.o. intake Pt received 2L IVF in the ED Follow creatinine Viral sepsis Tachycardia, tachypnea, and acute lactic acidosis secondary to viral flu infection CXR negative for superimposed pneumonia No indication for antibiotics at this time, treat as above Trend lactic acid Mood disorder Not on home meds, not currently following with PCP/therapis Ativan prn Encourage to establish outpatient care Full Code Attending:?Dr. Kumar DVT Prophylaxis: Lovenox Pt will be admitted to the hospital under observation for treatment and further evaluation of KRUNAL in the setting of influenza a infection. Quality Stroke Does the patient have a stroke diagnosis?: No VTE Prior VTE?: No VTE Risk Level:: Medical - moderate - high VTE Device Contraindication: Treatment Not Indicated VTE Drug Contraindication: N/A - Med Ordered
[2024-08-20] MEDS: Oseltamivir Phosphate 75 MG CAPSULE PO ×2 (12:00→23:11)
[2024-08-20 12:25] LABS: Reflex Lactate? Lactic Acid Added
--- NOTE | 2024-08-20 13:05 | PHA.MEDREC ---
Pharmacy Consult ? Medication Reconciliation Pharmacy has completed the medication reconciliation.
[2024-08-20 13:36] LABS: ~Lactic Acid-LAB USE ONLY 0.7 mmol/L (0.5-2.0)
--- OUTSIDE RECORDS SUMMARY | 2024-08-20 15:06 | XMS_ITS ---
Author Organization [facility] Address [address] [place] [phone] Care Team Providers Care Fermentation Scientist Name Role Phone No, PCP Primary Care Provider Marely Carson Unavailable [phone] REASON FOR VISIT Apply for [employer] Insurance/ Fax address verification to [facility] Social History Sex Assigned At : Social History Observation Description Sex Assigned At Male Encounters Encounter Location Date Provider Diagnosis [address] [id number] 07/19/2024 Marely Marquez Plan Of Treatment No Information Progress Notes * Blaise TOLEDO EDOB:[birth year] (29 yo M)Acc No.[id number]:07/19/2024 Case Management New Patient:?Erwin TOLEDO in E Provider:Ad Marquez :1995???Age:29 Y???Sex:Male Fernando e:07/19/2024 Address:[address] [place], [place] [id number] Pcp:PCP No Subjective: * Chief Complaints: * ???1. Apply for [facility] Insurance/ Fax address verification to [facility]. * HPI: ???Social Service:?Action Taken?SOLO? [employer] paper application was completed with client and faxed over to [facility]. Faxed proof of residency to [facility] [place] as well. gd2 07/19/24.? Objective: * Vitals:? Assessment: Plan: * Treatment: * Images: Billing Information: * Visit Code:? * Procedure Codes:? Care Plan Details* * Sign off status: Completed true * Provider:?Marely Marquez Date:?07/19/2024 Generated for Adan saha/Cb/Colt on:?08/20/2024 03:06 PM EST History and Physical Notes * HPI (History of Present Illness) Category Sub-Category Detail Notes Social Service Action Taken [facility] : [employer] p aper application was completed with client and faxed over to [facility]. Faxed proof of residency to [facility] as well. gd2 07/19/24
--- OUTSIDE RECORDS SUMMARY | 2024-08-20 15:06 | XMS_ITS | Patient Health Record ---
Author Organization [facility] Address [address] [place] [phone] Care Team Providers Care Operations Technician Name Role Phone No, PCP Primary Care Provider Marely Carson Unavailable [phone] Reason For Referral No Information Social History Sex Assigned At : Social History Observation Description Sex Assigned At Male Encounters Encounter Location Date Provider Diagnosis [address] [id number] 07/19/2024 Marely Marquez Plan Of Treatment No Information Insurance Providers Payer Name Payer Address Payer Phone Subscriber Number Group Number Insured Name Patient Relationship to Insured Coverage Start Date Coverage End Date Insurance Pending [address] [place] [id number] Blaise Toledo Self - patient is the insured
--- OUTSIDE RECORDS SUMMARY | 2024-08-20 15:06 | XMS_ITS | Continuity of Care Document ---
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 available. 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 Today we talked about your past medical history, family history, and social history.I will be your new primary care provider (Rosana LIZARRAGA).If you have any questions or concerns, please call or come back to see me. 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 I will refill the vy vanse for you today.Please call the office for refills and see me in the office in 6 months Related to Attention deficit disorder of childhood with hyperactivity STablePlease continu e the sertraline 100mg dailySee me in 6 months or sooner if you notice worsening of your moods Related to Anxiety state, unspecified Resolved.Please cont inue the back exercises 4 days per week Related to Back pain, lumbosacral STable.I will refill your medication and give you a 2 month supply.Please call the office for refills and see me in 6 months 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 VA variable. 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 ed. on increased risk of RD & symptoms. If they occur then RTC immediatly. Otherwise annual monitoring is recommended. 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
[2024-08-20 16:52] LABS: Appearance Urine Clear; Color Urine Dark Yellow; Glucose Urine UA Negative (Negative); Leukocyte Esterase Urine Negative (Negative); Nitrite Urine Negative (Negative); PH 5.5 (5.0-9.0); Specific Gravity - Urine >= 1.030 (1.005-1.025); UMIC TRIGGER UACC YES; Urine Blood Small (1+) (Negative); Urine Ketones 15 mg/dL (Negative); Urine Protein 30 (1+) mg/dL (Neg-Trace)
[2024-08-20 17:00] LABS: Bacteria Urine None Seen (None Seen); Squamous Epithelial Cell Urine 0-2 /HPF (0-2); WBC Urine 0-5 /HPF (0-5)
[2024-08-20 17:04] LABS: Amphetamine Screen Urine Not Detected (Not Detect); Barbiturates, Urine Not Detected (Not Detect); Benzodiazepines Screen Urine Not Detected (Not Detect); Buprenorphine Scr Not Detected (Not Detect); Cannabinoid Screen Urine Not Detected (Not Detect); Cocaine Screen Urine Not Detected (Not Detect); Fentanyl, urine Not Detected (Not Detect); Methadone Screen, Urine Not Detected (Not Detect); Opiate Screen Urine Not Detected (Not Detect); Oxycodone Screen Urine Not Detected (Not Detect); Phencyclidine Screen Urine Not Detected (Not Detect)
--- NOTE | 2024-08-20 17:57 | MHC.EDTECH ---
pt asked for food, pudding and jell=O given, pt stated his girlfriend will bring him soup.
[2024-08-20] MEDS: LORazepam 0.5 MG TABLET PO (23:13)
[2024-08-20] MEDS: 0.9 % Sodium Chloride Flush 3 ML SYRINGE IVFLUSH (23:16)
[2024-08-21 04:00] VITALS: BP 129/83; PULSE 76; RESP 18; TEMP 36.8; O2SAT 98
[2024-08-21 07:04] LABS: Anion Gap 15 (12-20); Blood Urea Nitrogen 12 mg/dL (9-16); Calcium 8.9 mg/dL (8.4-10.2); Carbon Dioxide 19 mmol/L (22-29); Chloride 107 mmol/L (96-108); Creatinine Clr Calc Pharmacy 143.7; Estimated Glomerular Filt Rate > 60; Glucose Random 81 mg/dL (60-115); Potassium 3.9 mmol/L (3.3-5.1); Sodium 137 mmol/L (135-145)
[2024-08-21 08:00] VITALS: BP 130/69; PULSE 92; RESP 18; TEMP 37.2; O2SAT 98
[2024-08-21] MEDS: Nicotine 21 MG PATCH.TD24 TRANSDERMA (09:45)
[2024-08-21] MEDS: 0.9 % Sodium Chloride Flush 3 ML SYRINGE IVFLUSH ×2 (09:47→23:24)
[2024-08-21] MEDS: ondansetron HCL 4 MG/2 ML VIAL IVPUSH (11:25)
[2024-08-21 12:00] VITALS: BP 113/81; PULSE 94; RESP 18; TEMP 36.8; O2SAT 98
[2024-08-21 12:17] LABS: GASOB Int Neg Ctl Valid YES; GASOB Int Pos Ctl Valid YES; Occult Blood Gastric POSITIVE (NEG)
[2024-08-21 12:18] LABS: GASOB Lot 20632
--- NOTE | 2024-08-21 12:29 | P.PNIM_ITS ---
Subjective Subjective Date of Service: 08/21/24 Interval History: pt vomited small amount of material that was Gastrocult positive coughing and short of breath O2 weaned to 1L afebrile Review of Systems Review of Systems: Yes all other systems are reviewed and are negative Physical Exam 2 Vital Signs: Vital Signs: Last Vital Signs Temp 98.9 F 08/21/24 08:00 Pulse 92 08/21/24 08:00 Resp 18 08/21/24 08:00 BP 130/69 08/21/24 08:00 Pulse Ox 98 08/21/24 08:00 O2 Del Method Nasal Cannula 08/21/24 08:00 O2 Flow Rate 2 08/21/24 08:00 Oxygen Flow Rate 2 08/20/24 10:03 BMI result Body Mass Index 31.6 Gen: in no acute distress HEENT: sclera anicteric, moist mucus membranes Neck: supple Lungs: diminished throughout Heart: regular rate and rhythm, no murmurs Abd: soft, non-tender, non-distended Ext: no edema Skin: warm/well-perfused Neuro: alert and oriented x3, no focal findings Psych: appropriate affect Objective Data Active Medications Acetaminophen (Acetaminophen 325 Mg Tablet) 650 mg PO Q6H PRN PRN Reason: Pain, Mild 1-3,fever,headache Last Admin: 08/20/24 23:11 Dose: 650 mg Documented By: ANDI Albuterol Sulfate (Albuterol Sulfate 90 Mcg 8 Gm Inhaler) 2 puff INHALE RQ4H PRN PRN Reason: shortness of breath or wheezin Calcium Carbonate (Calcium Carbonate 750 Mg Tab.Chew) 750 mg PO Q4H PRN PRN Reason: Heartburn Enoxaparin Sodium (Enoxaparin Sodium 40 Mg/0.4 Ml Syringe) 40 mg SUBCUT Q24H [facility] Last Admin: 08/20/24 15:31 Dose: Not Given Documented By: SYLVESTER Non-Admin Reason: Patient Refused Lorazepam (Lorazepam 0.5 Mg Tablet) 0.5 mg PO Q8H PRN PRN Reason: Anxiety Last Admin: 08/20/24 23:13 Dose: 0.5 mg Documented By: ANDI Magnesium Hydroxide (Milk Of Magnesia 30 Ml Oral.Susp) 30 ml PO DAILY PRN PRN Reason: Constipation Melatonin (Melatonin 3 Mg Tablet) 6 mg PO BEDTIME PRN PRN Reason: Insomnia Nicotine (Nicotine 21 Mg Patch.Td24) 21 mg TRANSDERMA DAILY [facility] Last Admin: 08/21/24 09:45 Dose: 21 mg Documented By: JENNY Omeprazole (Omeprazole 20 Mg Capsule.Dr) 20 mg PO DAILY@0630 [facility] Ondansetron HCl (Ondansetron Hcl 4 Mg/2 Ml Vial) 4 mg IVPUSH Q8H PRN PRN Reason: Nausea and Vomiting Last Admin: 08/21/24 11:25 Dose: 4 mg Documented By: EJNNY Oseltamivir Phosphate (Oseltamivir Phosphate 75 Mg Capsule) 75 mg PO Q12H [facility] Stop: 08/25/24 00:01 Last Admin: 08/20/24 23:11 Dose: 75 mg Documented By: ANDI Sodium Chloride (0.9 % Sodium Chloride Flush 3 Ml Syringe) 3 ml IVFLUSH QSHIFT [facility] Last Admin: 08/21/24 09:47 Dose: 3 ml Documented By: JENNY Labs 08/22/24 05:54 08/22/24 05:54 Labs: Laboratory Results - last 24 hr 08/20/24 08/20/24 08/20/24 13:15 16:39 16:40 Anion Gap Estim Creat Clear Calc Estimated GFR Random Glucose Lactic Acid F/U @ 2Hr 0.7 Calcium Urine Color Dark Yellow Urine Appearance Clear Urine pH 5.5 Ur Specific [place] >= 1.030 H Urine Protein 30 (1+) H Urine Glucose (UA) Negative Urine Ketones 15 Urine Blood Small (1+) H Urine Nitrite Negative Ur Leukocyte Esterase Negative Urine RBC 3-5 H Urine WBC 0-5 Ur Squamous Epith Cells 0-2 Urine Bacteria None Seen Hyaline Casts 6-10 Gastric Occult Blood Urine Opiates Screen Not Detected Ur Buprenorphine Scrn Not Detected Ur Oxycodone Screen Not Detected Urine Methadone Screen Not Detected Urine Fentanyl Screen Not Detected Ur Barbiturates Screen Not Detected Ur Phencyclidine Scrn Not Detected Ur Amphetamines Screen Not Detected U Benzodiazepines Scrn Not Detected Urine Cocaine Screen Not Detected U Marijuana (THC) Screen Not Detected 08/21/24 08/21/24 06:34 12:04 Anion Gap 15 Estim Creat Clear Calc 143.7 Estimated GFR > 60 Random Glucose 81 Lactic Acid F/U @ 2Hr Calcium 8.9 Urine Color Urine Appearance Urine pH Ur Specific [place] Urine Protein Urine Glucose (UA) Urine Ketones Urine Blood Urine Nitrite Ur Leukocyte Esterase Urine RBC Urine WBC Ur Squamous Epith Cells Urine Bacteria Hyaline Casts Gastric Occult Blood POSITIVE Urine Opiates Screen Ur Buprenorphine Scrn Ur Oxycodone Screen Urine Methadone Screen Urine Fentanyl Screen Ur Barbiturates Screen Ur Phencyclidine Scrn Ur Amphetamines Screen U Benzodiazepines Scrn Urine Cocaine Screen U Marijuana (THC) Screen Microbiology Microbiology Results: Microbiology 08/20/24 10:17 Blood Culture - Preliminary Blood - Venous No growth after 24 hours. 08/20/24 10:17 Blood Culture - Preliminary Blood - Venous No growth after 24 hours. Assessment and Plan (1) KRUNAL (acute kidney injury): Status: Acute (2) Influenza A: Status: Acute Plan d2 for 29yo M with anxiety/depression, no chronic lung disease presenting with nausea, vomiting, diarrhea, and dizziness x1d, found to have hypoxia from influenza A infection and KRUNAL acute hypoxic respiratory failure due to influenza A - oseltamivir 08/21-08/26; no evidence of bacterial infection - prn albuterol; consider outpt PFTs given pt report of frequent bouts of shortness of breath - supplemental O2, wean as tolerated KRUNAL - resolved after IV fluid hydration vomiting/occult hematemesis - likely Lorri Guevara but will monitor CBC and place on PPI viral sepsis - sepsis physiology resolved anxiety/depression - Psychiatry consult to establish outpatient care tobacco abuse - NRT VTE ppx - enoxaparin dispo - eventual home In my clinical judgment, the patient requires continued inpatient hospitalization for the following reasons: hypoxia Total time managing care of this patient today: 35 minutes. Quality Stroke Does the patient have a stroke diagnosis?: No VTE Prior VTE?: No VTE Risk Level:: Medical - moderate - high VTE Device Contraindication: Treatment Not Indicated VTE Drug Contraindication: N/A - Med Ordered
[2024-08-21] MEDS: Omeprazole 20 MG CAPSULE.DR PO (13:03)
[2024-08-21] MEDS: Oseltamivir Phosphate 75 MG CAPSULE PO ×2 (13:03→23:25)
[2024-08-21] MEDS: Acetaminophen 325 MG TABLET 650 MG PO (13:03)
[2024-08-21 15:32] VITALS: BP 120/83; PULSE 90; RESP 20; TEMP 36.9; O2SAT 96
[2024-08-21 21:50] VITALS: BP 135/75; PULSE 91; RESP 20; TEMP 36.7; O2SAT 96
[2024-08-21] MEDS: LORazepam 0.5 MG TABLET PO (23:36)
[2024-08-22] MEDS: Omeprazole 20 MG CAPSULE.DR PO (05:48)
[2024-08-22 05:53] VITALS: BP 122/79; PULSE 79; RESP 18; TEMP 36.9; O2SAT 96
[2024-08-22 06:50] LABS: Hemoglobin 16.4 g/dl (14.0-18.0); Mean Corpuscular HGB Conc 36.4 g/dl (31.0-36.0); Mean Corpuscular Hemoglobin 30.4 pg (27.0-33.0); Mean Corpuscular Volume 83.5 fL (80.0-98.0); Mean Platelet Volume 9.5 fL (9.4-12.4); Platelet Count 266 X10*3/uL (160-400); Red Blood Count 5.39 X10*6/uL (4.60-5.80); Red Cell Distribution Width 11.9 % (11.0-16.0)
[2024-08-22 07:02] LABS: Anion Gap 13 (12-20); Blood Urea Nitrogen 10 mg/dL (9-16); Calcium 9.2 mg/dL (8.4-10.2); Carbon Dioxide 27 mmol/L (22-29); Chloride 103 mmol/L (96-108); Creatinine Clr Calc Pharmacy 133.8; Estimated Glomerular Filt Rate > 60; Glucose Random 89 mg/dL (60-115); Sodium 139 mmol/L (135-145)
[2024-08-22 08:00] VITALS: BP 115/71; PULSE 77; RESP 20; TEMP 37.7; O2SAT 96
[2024-08-22] MEDS: 0.9 % Sodium Chloride Flush 3 ML SYRINGE IVFLUSH (09:06)
[2024-08-22] MEDS: Nicotine 21 MG PATCH.TD24 TRANSDERMA (09:06)
--- NOTE | 2024-08-22 09:45 | PM.DS ---
DS: Providers Provider Date of Service: 08/22/24 Date of admission: 08/20/24 12:22 Date of discharge: 08/22/24 Primary care physician: Roseanna Physician DS: Diagnosis Discharge Diagnosis (1) KRUNAL (acute kidney injury): Status: Acute (2) Influenza A: Status: Acute (3) Acute respiratory failure with hypoxia: Status: Acute (4) Nausea & vomiting: Status: Acute (5) Tobacco abuse: Status: Acute (6) Anxiety: Status: Acute (7) Viral sepsis: Status: Acute DS: Summary Hospital Course Hospital Course: From the history and physical by the admitting hospitalist, KIMBER Gonsalez, 08/20/24: Pt is a 29-year-old male with PMH significant for anxiety and depression not on home meds who presents to the ED via ambulance from walk-in clinic for evaluation of N/V/D and dizziness since yesterday. Has also been experiencing SOB, productive cough, fever and chills, chest tightness/pain, and abdominal pain. Has not be able to keep any food or drink down since then. Reports family members in household have similar symptoms for past 1-2 weeks. Previous smoker without pulmonary diagnosis or home inhalers. In the ED pt was febrile up to 101.7, tachycardic up to 123, tachypneic up to 23, desatting as low as 90% at walk-in clinic. Labs were significant for testing positive for flu, creatinine 1.24 (elevated from 0.79 on 08/07/2024), lactic acid 3.2, and bilirubin 1.9. No leukocytosis. Stable H&H. No significant electrolyte abnormalities. Troponin negative. BNP negative. CXR showed diffuse mild peribronchial thickening without focal pneumonia or effusion. EKG demonstrated sinus tachycardia of 113 without any significant ischemic changes. Pt was treated with IVF, acetaminophen, empiric ceftriaxone, and Tamiflu. Pt will be admitted to the hospital under observation for treatment and further evaluation of KRUNAL in the setting of acute influenza a infection. 29yo M with anxiety and no chronic lung disease presenting with nausea, vomiting, diarrhea, and dizziness x1d, found to have hypoxia from influenza A infection and KRUNAL. He was admitted to the medical-surgical unit. He was treated with oseltamivir. No evidence of bacterial infection. Fever and sepsis physiology resolved. He was weaned off of oxygen. KRUNAL resolved after IV fluid hydration. He had an episode of vomiting with occult hematemesis; likely small Lorri-Guevara tear given no change in H+H. He was prescribed the rest of his oseltamivir course upon discharge along with a trial of albuterol inhaler given frequent bouts of dyspnea. He should obtain outpatient PFTs once he obtains a primary care doctor. He was also prescribed ondansetron. He declined Psychiatry consultation to establish outpatient care for anxiety. He was prescribed nicotine patch. Time Attestation Discharge Coordination Time (in mins): 35 Quality: Safe Use of Opioids Does Pt have an Active Cancer Diagnosis on the Problem List?: No Quality: Stroke Does the patient have a stroke diagnosis?: No Physical Exam Vital Signs: Vital Signs: Last Vital Signs Temp 99.8 F 08/22/24 08:00 Pulse 77 08/22/24 08:00 Resp 20 08/22/24 08:00 BP 115/71 08/22/24 08:00 Pulse Ox 96 08/22/24 08:00 O2 Del Method Room Air 08/22/24 08:00 O2 Flow Rate 1.0 08/21/24 12:00 Oxygen Flow Rate 2 08/20/24 10:03 BMI result Body Mass Index 31.6 Gen: in no acute distress HEENT: sclera anicteric, moist mucus membranes Neck: supple Lungs: clear to auscultation bilaterally Heart: regular rate and rhythm, no murmurs Abd: soft, non-tender, non-distended Ext: no edema Skin: warm/well-perfused Neuro: alert and oriented x3, no focal findings Psych: appropriate affect DS: Data Data Completed and Pending Completed studies during hospitalization [Text1]: Laboratory Results WBC 6.0 X10*3/uL (4.8-10.8) 08/22/24 05:54 RBC 5.39 X10*6/uL (4.60-5.80) 08/22/24 05:54 Hgb 16.4 g/dl (14.0-18.0) 08/22/24 05:54 Hct 45.0 % (42.0-52.0) 08/22/24 05:54 MCV 83.5 fL (80.0-98.0) 08/22/24 05:54 MCH 30.4 pg (27.0-33.0) 08/22/24 05:54 MCHC 36.4 g/dl (31.0-36.0) H 08/22/24 05:54 RDW 11.9 % (11.0-16.0) 08/22/24 05:54 Plt Count 266 X10*3/uL (160-400) 08/22/24 05:54 MPV 9.5 fL (9.4-12.4) 08/22/24 05:54 Immature Gran % (Auto) 0.3 % (0.0-0.4) 08/20/24 10:17 Neut % (Auto) 75.3 % (45-73) H 08/20/24 10:17 Lymph % (Auto) 10.5 % (20-40) L 08/20/24 10:17 [place] % (Auto) 13.2 % (2-11) H 08/20/24 10:17 Eos % (Auto) 0.1 % (0-4) 08/20/24 10:17 Baso % (Auto) 0.6 % (0-2) 08/20/24 10:17 Lymph # (Auto) 0.8 X10*3/uL (1.2-4.9) L 08/20/24 10:17 [place] # (Auto) 1.0 X10*3/uL (0.1-1.2) 08/20/24 10:17 Eos # (Auto) 0.0 X10*3/uL (0.0-0.4) 08/20/24 10:17 Baso # (Auto) 0.1 X10*3/uL (0.0-0.2) 08/20/24 10:17 Abs Immat Gran (auto) 0.02 X10*3/uL (0.00-0.03) 08/20/24 10:17 Absolute Neuts (auto) 5.8 x10*3/uL (2.0-8.3) 08/20/24 10:17 Absolute Nucleated RBC 0.000 X10*3/uL (0.0-0.012) 08/22/24 05:54 Nucleated RBC % (auto) 0.0 /100WBC (0.0-0.2) 08/22/24 05:54 PT 19.2 SEC (10.9-12.4) H 08/20/24 10:17 INR 1.6 (0.9-1.1) H 08/20/24 10:17 D-Dimer High Sensitivty 214 NG/ML 08/20/24 10:17 VBG pH 7.42 (7.32-7.43) 08/20/24 10:25 VBG pCO2 36 mmHg 08/20/24 10:25 VBG pO2 47 mmHg 08/20/24 10:25 VBG HCO3 24 mmol/L (22-26) 08/20/24 10:25 VBG O2 Saturation 83.0 % 08/20/24 10:25 VBG Base Excess 0.0 mmol/L 08/20/24 10:25 Sodium 139 mmol/L (135-145) 08/22/24 05:54 Potassium 4.0 mmol/L (3.3-5.1) 08/22/24 05:54 Chloride 103 mmol/L (96-108) 08/22/24 05:54 Carbon Dioxide 27 mmol/L (22-29) 08/22/24 05:54 Anion Gap 13 (12-20) 08/22/24 05:54 BUN 10 mg/dL (9-16) 08/22/24 05:54 Creatinine 0.87 mg/dL (0.5-1.4) 08/22/24 05:54 Estim Creat Clear Calc 133.8 08/22/24 05:54 Estimated GFR > 60 08/22/24 05:54 Random Glucose 89 mg/dL (60-115) 08/22/24 05:54 Lactic Acid 3.2 mmol/L (0.5-2.0) H* 08/20/24 10:18 Lactic Acid F/U @ 2Hr 0.7 mmol/L (0.5-2.0) 08/20/24 13:15 Calcium 9.2 mg/dL (8.4-10.2) 08/22/24 05:54 Magnesium 1.9 mg/dL (1.6-2.6) 08/20/24 10:17 Total Bilirubin 1.9 mg/dL (0.0-1.0) H 08/20/24 10:17 Direct Bilirubin 0.5 mg/dL (0.0-0.5) 08/20/24 10:17 AST 23 U/L (5-37) 08/20/24 10:17 ALT 26 U/L (0-40) 08/20/24 10:17 Alkaline Phosphatase 83 U/L (39-117) 08/20/24 10:17 Troponin I High Sens < 2.7 ng/L (<3.5-35.0) 08/20/24 10:17 B-Natriuretic Peptide < 10 pg/mL (<100) 08/20/24 10:17 Total Protein 7.9 g/dL (6.5-8.0) 08/20/24 10:17 Albumin 4.4 g/dL (3.5-5.0) 08/20/24 10:17 Lipase 13 U/L (8-78) 08/20/24 10:17 Urine Color Dark Yellow 08/20/24 16:39 Urine Appearance Clear 08/20/24 16:39 Urine pH 5.5 (5.0-9.0) 08/20/24 16:39 Ur Specific [place] >= 1.030 (1.005-1.025) H 08/20/24 16:39 Urine Protein 30 (1+) mg/dL (Neg-Trace) H 08/20/24 16:39 Urine Glucose (UA) Negative mg/dL (Negative) 08/20/24 16:39 Urine Ketones 15 mg/dL (Negative) 08/20/24 16:39 Urine Blood Small (1+) (Negative) H 08/20/24 16:39 Urine Nitrite Negative (Negative) 08/20/24 16:39 Ur Leukocyte Esterase Negative (Negative) 08/20/24 16:39 Urine RBC 3-5 /HPF (0-2) H 08/20/24 16:39 Urine WBC 0-5 /HPF (0-5) 08/20/24 16:39 Ur Squamous Epith Cells 0-2 /HPF (0-2) 08/20/24 16:39 Urine Bacteria None Seen (None Seen) 08/20/24 16:39 Hyaline Casts 6-10 /LPF (0-2) 08/20/24 16:39 Gastric Occult Blood POSITIVE (NEG) 08/21/24 12:04 Urine Opiates Screen Not Detected (Not Detect) 08/20/24 16:40 Ur Buprenorphine Scrn Not Detected ng/mL (Not Detect) 08/20/24 16:40 Ur Oxycodone Screen Not Detected ng/mL (Not Detect) 08/20/24 16:40 Urine Methadone Screen Not Detected ng/mL (Not Detect) 08/20/24 16:40 Urine Fentanyl Screen Not Detected (Not Detect) 08/20/24 16:40 Ur Barbiturates Screen Not Detected (Not Detect) 08/20/24 16:40 Ur Phencyclidine Scrn Not Detected (Not Detect) 08/20/24 16:40 Ur Amphetamines Screen Not Detected (Not Detect) 08/20/24 16:40 U Benzodiazepines Scrn Not Detected (Not Detect) 08/20/24 16:40 Urine Cocaine Screen Not Detected (Not Detect) 08/20/24 16:40 U Marijuana (THC) Screen Not Detected (Not Detect) 08/20/24 16:40 Influenza Type A (PCR) POSITIVE (Negative) A 08/20/24 10:18 Influenza Type B (PCR) NEGATIVE (Negative) 08/20/24 10:18 RSV RNA Qual (PCR) NEGATIVE (Negative) 08/20/24 10:18 SARS-CoV-2 RNA (RT-PCR) NEGATIVE (Negative) 08/20/24 10:18 Impressions Chest X-Ray 08/20/24 10:13 IMPRESSION: 1. Low lung volumes, with bronchovascular crowding in the hilar regions and lower lungs. Suggestion of diffuse mild peribronchial thickening. 2. No focal pneumonia or effusion. Electronically signed by: Edson Morton MD 08/20/2024 11:20 AM [facility] [place] [place] Discharge Plan Discharge Anticipated Discharge Date/Time: 08/22/24 09:39 Patient Disposition: Home, Self-Care Discharge Diagnosis: influenza A acute kidney injury, resolved nausea anxiety Referrals: Physician,None [Primary Care Provider] - 1 Week Discharge Medications: New oseltamivir [Tamiflu] 75 mg Capsule 75 mg PO Q12H Qty: 6 0RF nicotine 21 mg/24 hr Patch 24 Hour 21 mg transdermal DAILY Qty: 30 0RF albuterol sulfate [Ventolin HFA] 90 mcg/actuation Hfa Aerosol Inhaler 2 puff inhalation RQ4H PRN (Reason: shortness of breath or wheezin) Qty: 1 0RF ondansetron HCl 4 mg tablet 4 mg PO Q8H PRN (Reason: nausea and vomiting) Qty: 10 0RF Discharge Orders: Discharge Order (Routine); Ordered 08/22/24 Ordered By: Lnida Power Diet: Advance to usual diet Activity on Discharge: As tolerated Stand Alone Forms: Patient Portal Discharge page Print Language: Serbian Care Plan Goals: recovery from flu Health Concerns: influenza A acute kidney injury, resolved nausea anxiety Plan of Treatment: take oseltamivir [Tamiflu] 75 mg twice daily for 3 days use albuterol inhaler as needed for shortness of breath or wheezing drink plenty of fluids take ondansetron [Zofran] 4 mg every 8 hours as needed for nausea quit smoking; use nicotine patch to quit establish primary care as soon as possible Return to the hospital if you experience recurrent or worsening symptoms. Assessment: See Discharge Summary.
--- NOTE | 2024-08-22 10:54 | MHC.CM.PN ---
CM MET WITH PT AT BEDSIDE. PT LIVES WITH S/O AND IS CURRENTLY UNEMPLOYED. +THRIVE ASSESSMENT, RESOURCE GUIDE PROVIDED. NO PCP, [facility] PROVIDED. PT IS FUNCTIONALLY INDEPENDENT. DECLINES COMPLETING A HCP AT THIS TIME. DP: PT HAS BEEN MEDICALLY CLEARED FOR DC HOME, NO SERVICES. PT HAS OWN RIDE HOME.
--- NOTE | 2024-08-25 06:55 | PC.NURSE ---
On 08/21/24 pt requested PRN 650mg tylenol for 01/01 pain administered at 1303. Pain reassessed at 1500 as 09/03. Per pt the medication was effective.
== END 2024-08-22 11:07 | disposition home or self-care (01) | DRG 720 ==
LOC: HO.ED 11:21 → HO.EDOVER 12:34 → HO.S3 17:06
PROVIDERS: Physician Assistant; Admitting Provider Student in an Organized Health Care Education/Training Program; Emergency Provider Emergency Medicine; Visit Provider Family Medicine
DX: A41.89 Other specified sepsis (principal); J96.01 Acute respiratory failure with hypoxia; E87.21 Acute metabolic acidosis; N17.9 Acute kidney failure, unspecified; K22.6 Gastro-esophageal laceration-hemorrhage syndrome; F41.9 Anxiety disorder, unspecified; F32.A Depression, unspecified; J10.1 Influenza due to other identified influenza virus with other respiratory manifestations; Z87.891 Personal history of nicotine dependence; Z20.822 Contact with and (suspected) exposure to COVID-19; Z79.899 Other long term (current) drug therapy
CPT/HCPCS: 0241U; 36415; 71046; 80048; 80076; 80307; 81001; 82271; 82803; 83605; 83690; 83735; 83880; 84484; 85025; 85027; 85379; 85610; 87040; 93005; 99221; 99285; J0696; J2405

== ENCOUNTER → 2024-08-20 10:11 | Outpatient (BNV) | payer OTHER, SELFPAY | PROVIDERS: Admitting Provider Student in an Organized Health Care Education/Training Program; Emergency Provider Emergency Medicine; Visit Provider Internal Medicine | DX: R00.0 Tachycardia, unspecified (principal) | CPT/HCPCS: 93010 ==

== ENCOUNTER → 2024-08-20 10:13 | Outpatient (BNV) | payer OTHER, SELFPAY | PROVIDERS: Emergency Provider Emergency Medicine; Visit Provider Radiology Diagnostic Radiology | DX: R05.9 Cough, unspecified (principal); R06.02 Shortness of breath | CPT/HCPCS: 71046 ==

== ENCOUNTER → 2024-08-20 12:22 | Outpatient (BNV) | payer OTHER, SELFPAY | PROVIDERS: Admitting Provider Student in an Organized Health Care Education/Training Program; Emergency Provider Emergency Medicine; Visit Provider Family Medicine | DX: N17.9 Acute kidney failure, unspecified (principal); J10.1 Influenza due to other identified influenza virus with other respiratory manifestations; J96.01 Acute respiratory failure with hypoxia; R11.2 Nausea with vomiting, unspecified; Z72.0 Tobacco use; F41.9 Anxiety disorder, unspecified; A41.89 Other specified sepsis; B97.89 Other viral agents as the cause of diseases classified elsewhere | CPT/HCPCS: 99222; 99232; 99239 ==

== ENCOUNTER 2024-08-28 00:54 | Inpatient (IN) | payer OTHER, SELFPAY ==
--- NOTE | ~2024-08-28 | US_ITS ---
EXAMINATION: US ABDOMEN LIMITED HISTORY: Epigastric/upper abd pain TECHNIQUE: Real-time grayscale ultrasound imaging of the right upper quadrant was performed and images were reviewed. COMPARISON: Comparison is made with the prior examination dated 07/10/2024. FINDINGS: Liver: The liver is normal in size and demonstrates homogeneous echotexture. No focal mass or intrahepatic biliary ductal dilatation is identified. There is normal hepatopedal flow in the portal vein. Gallbladder and biliary tree: The gallbladder is unremarkable, without evidence of calculi, wall thickening, or pericholecystic fluid. There is no sonographic Yran sign. The common bile duct is normal in caliber measuring 4 mm. Right Kidney: The right kidney measures 9.9 cm in length. The right kidney is unremarkable, without evidence of masses, hydronephrosis, or calculi. Pancreas: The pancreas is obscured by bowel gas. Abdominal aorta and inferior vena cava: The visualized portions of the abdominal aorta and inferior vena cava are normal in caliber. There is no free fluid in the right upper quadrant. US/US abdomen limited IMPRESSION: The pancreas is obscured by bowel gas. Otherwise unremarkable right upper quadrant ultrasound. Electronically signed by: Luis Bingham MD 08/28/2024 09:56 AM EST
--- NOTE | ~2024-08-28 | XR_ITS ---
EXAMINATION: XR CHEST 1 VIEW HISTORY: cp/sob COMPARISON: Comparison is made with the prior examination dated 08/20/2024. FINDINGS: A single AP view of the chest is submitted. There are low lung volumes. The lungs are grossly clear. There is no pleural effusion, pneumothorax, or pulmonary vascular congestion. The heart is normal in size. The bones are intact. XR/XR chest 1V IMPRESSION: Low lung volumes. No acute cardiopulmonary abnormality. Electronically signed by: Luis Bingham MD 08/28/2024 09:58 AM EST
[2024-08-28 01:00] VITALS: BP 136/88; PULSE 110; O2SAT 96
[2024-08-28 01:07] VITALS: BP 121/87; PULSE 101; RESP 20; TEMP 36.8; O2SAT 97; BMI 31.1
--- NOTE | 2024-08-28 01:10 | ECG_ITS ---
Test Reason : EPIGASTRIC PAIN Blood Pressure : */* mmHG Vent. Rate : 84 BPM Atrial Rate : 84 BPM P-R Int : 150 ms QRS Dur : 82 ms QT Int : 352 ms P-R-T Axes : 50 33 31 degrees QTcB Int : 415 ms Normal sinus rhythm Normal ECG When compared with ECG of 20-Aug-2024 11:00, No significant change was found Referred By: Jaycee Diamond Electronically Signed By: Linus Poe
[2024-08-28 02:17] LABS: MANUAL DIFF FLAG NO
[2024-08-28 02:19] LABS: Basophils Absolute Auto 0.1 X10*3/uL (0.0-0.2); Basophils Percent Auto 0.5 % (0-2); Eosinophils Absolute Auto 0.1 X10*3/uL (0.0-0.4); Hematocrit 40.9 % (42.0-52.0); Imm Gran Abs Auto 0.05 X10*3/uL (0.00-0.03); Imm Gran Pct Auto 0.5 % (0.0-0.4); Lymphocytes Percent Auto 20.3 % (20-40); Mean Corpuscular HGB Conc 36.7 g/dl (31.0-36.0); Mean Corpuscular Hemoglobin 30.1 pg (27.0-33.0); Mean Corpuscular Volume 82.1 fL (80.0-98.0); Mean Platelet Volume 8.9 fL (9.4-12.4); Monocytes Percent Auto 10.1 % (2-11); Neutrophils Absolute Auto 6.6 x10*3/uL (2.0-8.3); Neutrophils Percent Auto 67.6 % (45-73); Platelet Count 392 X10*3/uL (160-400); Red Blood Count 4.98 X10*6/uL (4.60-5.80); Red Cell Distribution Width 11.8 % (11.0-16.0); White Blood Count 9.8 X10*3/uL (4.8-10.8)
--- NOTE | 2024-08-28 02:21 | MHC.EDTECH ---
Patient was changed into crisis attire,security at bedside to assist with changeover, belongings list completed,copy placed in chart/ locked in the michelle port shelf # 2
[2024-08-28 02:29] LABS: Appearance Urine Clear; Color Urine Yellow; Glucose Urine UA Negative (Negative); Leukocyte Esterase Urine Negative (Negative); Nitrite Urine Negative (Negative); PH 8.5 (5.0-9.0); Urine Blood Negative (Negative); Urine Ketones Negative (Negative); Urine Protein Negative (Neg-Trace)
[2024-08-28 02:39] LABS: Amphetamine Screen Urine Not Detected (Not Detect); Barbiturates, Urine Not Detected (Not Detect); Benzodiazepines Screen Urine Not Detected (Not Detect); Buprenorphine Scr Not Detected (Not Detect); Cannabinoid Screen Urine Not Detected (Not Detect); Cocaine Screen Urine Not Detected (Not Detect); Fentanyl, urine Not Detected (Not Detect); Methadone Screen, Urine Not Detected (Not Detect); Opiate Screen Urine Not Detected (Not Detect); Oxycodone Screen Urine Not Detected (Not Detect); Phencyclidine Screen Urine Not Detected (Not Detect)
[2024-08-28 02:44] LABS: Alanine Aminotransferase 25 U/L (0-40); Albumin Level 4.3 g/dL (3.5-5.0); Alkaline Phosphatase 70 U/L (39-117); Anion Gap 13 (12-20); Aspartate Amino Transferase 27 U/L (5-37); Bilirubin Direct 0.3 mg/dL (0.0-0.5); Blood Urea Nitrogen 8 mg/dL (9-16); Calcium 9.1 mg/dL (8.4-10.2); Carbon Dioxide 24 mmol/L (22-29); Chloride 108 mmol/L (96-108); Creatinine Clr Calc Pharmacy 120.2; Estimated Glomerular Filt Rate > 60; Ethanol < 10 mg/dL; Glucose Random 110 mg/dL (60-115); Lipase 16 U/L (8-78); Potassium 3.4 mmol/L (3.3-5.1); Sodium 142 mmol/L (135-145); Troponin-I High Sensitivity < 2.7 ng/L (<3.5-35.0)
--- NOTE | 2024-08-28 02:51 | PC.NURSE ---
Patient arrived via EMS. EMS was initially called due to chest pain. Upon arrival, patient reported getting into an argument with his girlfriend, feeling emotional pain , anxiety, and epigastric pain. EKG was ordered by THERESA Diamond at 1:10am, but not obtained immediately due to multiple EKGs being performed simultaneously and chief complaint not being chest pain. Patient is still awaiting primary MD/provider evaluation. 18g IV access to left AC, patent/intact. Changeover completed. Belongings secured (2 bags) into sallyport by security without issue, belongings list completed. Patient endorses SI/HI with no specified plan. Stated I feel a lot of emotional pain, and I got a lot of stuff going on. My heart hurts because of my girl . CARE team consult ordered, pending evaluation. Labs drawn and sent for analysis. EKG unremarkable. Patient is resting in semi-fowlers position, calm/cooperative in bed. Alert & oriented x4. No section in place at this time. Sitter present. Watching TV at this time. No acute distress. Given ice water to drink. States that he is homeless and wants to be sent to a intermediate if/when he is discharged. Nicotine patch in place to left chest, requesting ongoing/continuous Nicotine patches for smoking cessation.
[2024-08-28 05:08] VITALS: BP 100/64; PULSE 80; RESP 16; TEMP 36.5; O2SAT 97
--- NOTE | 2024-08-28 05:31 | PC.NURSE ---
This RN assumed pt care @ 0300. Pt resting comfortably, no signs of distress. Plan of care ongoing.
--- NOTE | 2024-08-28 08:43 | PC.NURSE ---
Assumed care of patient at 0645, patient appears to be in no apparent distress this am, calm and cooperative, respirations even and unlabored, resting in room. Continue plan of care for medical clearance and CARE team william
[2024-08-28 09:09] LABS: Magnesium 2.2 mg/dL (1.6-2.6)
--- NOTE | 2024-08-28 09:09 | PC.NURSE ---
Medications are late due to this RN not being able to get coverage to grab medications from main ER. planer hand and float RN aware
--- NOTE | 2024-08-28 09:19 | ED_ITS ---
HPI - General Adult General Chief complaint: General Medical Stated complaint: Chest Pain, N/V Time Seen by Provider: 08/28/24 06:37 Source: patient, EMS, RN notes reviewed and old records reviewed Mode of arrival: EMS History of Present Illness ED Provider: Rebekah Yang PA-C [facility] narrative: 29-year-old male with a past medical history influenza A, KRUNAL, anxiety, depression, ADHD, presenting to the ED via EMS complaining of epigastric abdominal pain/lower chest pain, SOB x yesterday. Also reports nausea and vomiting. Admits to SI with plan to hang himself. Denies HI. Also reports hallucinations, seeing his mother. Reports lot going on emotionally/at home. Denies EtOH or illicit substance use, dysuria/hematuria. Related Data Home Medications ?Medication ?Instructions ?Recorded ?Confirmed No Known Home Meds 08/28/24 08/28/24 Allergies Allergy/AdvReac Type Severity Reaction Status Date / Time No Known Allergies Allergy Verified 08/28/24 01:09 Review of Systems 2 Review of Systems: Yes all other systems are reviewed and are negative Constitutional: Constitutional: Reports as per [facility] Past Medical History Attestation statement: The following information was validated with the patient. Source: old records reviewed Medical History Depression Anxiety ADHD Social History Social History Household Members: Significant Other Housing: Apartment Do you presently have visiting nurse or other home services: No Alcohol intake: current Alcohol intake frequency: holidays/special occasions only Patient Tobacco Use Status: Former Tobacco user Tobacco use type: Cigarette Smoked in Last 30 Days: Yes Use of substances other than those prescribed or required for medical reasons: No Advance Directives: No Advance Directives Information Provided: Yes Do you have a plan to hurt others: Vague service: No Physical Exam ED Vital Signs: Vital Signs - 24 hr 08/28/24 01:07 08/28/24 05:08 Temperature 98.3 F 97.7 F Pulse Rate 101 H 80 Respiratory Rate 20 16 Blood Pressure 121/87 100/64 Pulse Oximetry 97 97 Oxygen Delivery Method Room Air Room Air BMI result Body Mass Index 31.1 Const General: cooperative, healthy appearing and no acute distress Orientation/consciousness: patient oriented x3 Limitations: no limitations HENMT Head: Yes normal to inspection and Yes atraumatic Ears: hearing grossly normal bilaterally General nose exam: Normal external nose present Face and sinus: Yes normal facial exam Eyes General: appearance normal, both eyes and all related structures EOM: EOMs intact bilaterally Neck Neck: Yes normal visual inspection and Yes no meningeal signs Resp Effort & Inspection: normal respiratory effort and no respiratory distress Auscultation: clear to auscultation bilaterally, no crackles, no rales and no wheezes Cardio Rate: regular rate Heart sounds: S1 normal heart sound present and S2 normal heart sound present GI Inspection: Yes normal to inspection Palpation (GI): Soft to palpation, Tenderness to palpation present (GI) in the epigastrum; with no rebound tenderness, no guarding and not rigid General: Yes no CVA tenderness Back/Spine/Pelvis Back: no CVA tenderness Skin Rashes: no rashes Wounds: no wounds Neuro General: patient oriented x3, tone normal and no meningeal signs Cranial nerves: Yes CN's II-XII intact bilaterally Gait exam (Neuro): Normal gait present Extrem General: Yes normal to inspection Psych Other: Eyes closed during entire evaluation Thought content: Suicidality present and no homicidality Course Course Course Narrative: -925--no leukocytosis. Labs otherwise reassuring including negative troponin. -UA negative. Tox screen negative. Ethanol negative XR chest 1V IMPRESSION: Low lung volumes. No acute cardiopulmonary abnormality. US abdomen limited IMPRESSION: The pancreas is obscured by bowel gas. Otherwise unremarkable right upper quadrant ultrasound. > recommend the patient follows outpatient with Gastroenterology for further workup as needed. Labs and imaging reassuring today. No need for further imaging at this time. -physician observation initiated. Patient was evaluated by CARE team and will be inpatient level of care Medications Administered Discontinued Medications Generic Name Dose Route Start Last Admin Trade Name Freq PRN Reason Stop Dose Admin Acetaminophen 650 mg 08/28/24 08:05 08/28/24 09:21 Acetaminophen 325 Mg Tablet PO 08/28/24 08:06 650 mg ONCE ONE Administration Al Hydroxide/Mg Hydroxide 30 ml 08/28/24 08:05 08/28/24 09:21 Magnesium Hydrox/Alum Hydrox 30 Ml Oral.Susp PO 08/28/24 08:06 30 ml ONCE ONE Administration Famotidine 20 mg 08/28/24 08:05 08/28/24 09:21 Famotidine 20 Mg Tablet PO 08/28/24 08:06 20 mg ONCE ONE Administration Medical Decision Making Medical Decision Making [facility] Narrative: 29-year-old male with a past medical history influenza A, KRUNAL, anxiety, depression, ADHD, presenting to the ED via EMS complaining of epigastric abdominal pain/lower chest pain, SOB x yesterday. Also reports nausea and vomiting. Admits to SI with plan to hang himself & hallucinations, seeing his mother. On exam vital signs stable, NAD, eyes closed during entire evaluation, + SI with plan. Lungs CTA. Abdomen soft with epigastric tenderness. Concern for GERD vs PUD vs pancreatitis vs cholecystitis/lithiasis. Lower suspicion for ACS, PE, dissection, renal stones/pyelo Plan: EKG, labs, UA, CXR, abdomen ultrasound, CARE team eval Please refer to course for remaining clinical decision making, interpretation of labs/imaging results, and discussions with consultants and/or family members. Differential Diagnosis Differential Diagnoses: The differential diagnosis associated with the presentation includes As above Admission/Observation Consideration of admission/observation: Escalation of care including admission/observation considered Consult Healthcare Provider Management of the patient was discussed with: Behavioral Health Provider Lab Data [facility] Lab Attestation statement: I reviewed the patient's lab results. 08/28/24 02:13 08/28/24 02:13 Labs: Lab Results 08/28/24 08/28/24 Range/Units 02:13 02:22 WBC 9.8 (4.8-10.8) X10*3/uL RBC 4.98 (4.60-5.80) X10*6/uL Hgb 15.0 (14.0-18.0) g/dl Hct 40.9 L (42.0-52.0) % MCV 82.1 (80.0-98.0) fL MCH 30.1 (27.0-33.0) pg MCHC 36.7 H (31.0-36.0) g/dl RDW 11.8 (11.0-16.0) % Plt Count 392 D (160-400) X10*3/uL MPV 8.9 L (9.4-12.4) fL Immature Gran % (Auto) 0.5 H (0.0-0.4) % Neut % (Auto) 67.6 (45-73) % Lymph % (Auto) 20.3 (20-40) % [place] % (Auto) 10.1 (2-11) % Eos % (Auto) 1.0 (0-4) % Baso % (Auto) 0.5 (0-2) % Lymph # (Auto) 2.0 (1.2-4.9) X10*3/uL [place] # (Auto) 1.0 (0.1-1.2) X10*3/uL Eos # (Auto) 0.1 (0.0-0.4) X10*3/uL Baso # (Auto) 0.1 (0.0-0.2) X10*3/uL Abs Immat Gran (auto) 0.05 H (0.00-0.03) X10*3/uL Absolute Neuts (auto) 6.6 (2.0-8.3) x10*3/uL Absolute Nucleated RBC 0.000 (0.0-0.012) X10*3/uL Nucleated RBC % (auto) 0.0 (0.0-0.2) /100WBC Sodium 142 (135-145) mmol/L Potassium 3.4 (3.3-5.1) mmol/L Chloride 108 (96-108) mmol/L Carbon Dioxide 24 (22-29) mmol/L Anion Gap 13 (12-20) BUN 8 L (9-16) mg/dL Creatinine 0.93 (0.5-1.4) mg/dL Estim Creat Clear Calc 120.2 Estimated GFR > 60 Random Glucose 110 (60-115) mg/dL Calcium 9.1 (8.4-10.2) mg/dL Magnesium 2.2 (1.6-2.6) mg/dL Total Bilirubin 1.0 (0.0-1.0) mg/dL Direct Bilirubin 0.3 (0.0-0.5) mg/dL AST 27 (5-37) U/L ALT 25 (0-40) U/L Alkaline Phosphatase 70 (39-117) U/L Troponin I High Sens < 2.7 (<3.5-35.0) ng/L Total Protein 8.0 (6.5-8.0) g/dL Albumin 4.3 (3.5-5.0) g/dL Lipase 16 (8-78) U/L Urine Color Yellow Urine Appearance Clear Urine pH 8.5 (5.0-9.0) Ur Specific [place] 1.010 (1.005-1.025) Urine Protein Negative (Neg-Trace) mg/dL Urine Glucose (UA) Negative (Negative) mg/dL Urine Ketones Negative (Negative) mg/dL Urine Blood Negative (Negative) Urine Nitrite Negative (Negative) Ur Leukocyte Esterase Negative (Negative) Urine Opiates Screen Not Detected (Not Detect) Ur Buprenorphine Scrn Not Detected (Not Detect) ng/mL Ur Oxycodone Screen Not Detected (Not Detect) ng/mL Urine Methadone Screen Not Detected (Not Detect) ng/mL Urine Fentanyl Screen Not Detected (Not Detect) Ur Barbiturates Screen Not Detected (Not Detect) Ur Phencyclidine Scrn Not Detected (Not Detect) Ur Amphetamines Screen Not Detected (Not Detect) U Benzodiazepines Scrn Not Detected (Not Detect) Urine Cocaine Screen Not Detected (Not Detect) U Marijuana (THC) Screen Not Detected (Not Detect) Ethyl Alcohol < 10 mg/dL Independent Interpretation I performed an independent interpretation of an: EKG (My interpretation: EKG normal sinus rhythm rate of 84. TX interval 150. QTC 415. No significant change when compared to prior. No STEMI), Plain X-Ray and Ultrasound Radiology Impression Discussion of test interpretation with radiology: I have reviewed the radiologist's reading. Independent Historian Clinical information obtained from an independent historian. History obtained from or confirmed by: EMS External Record Review External record reviewed: Inpatient record, Office record, Outpatient record, Prior outpatient labs, Prior outpatient radiology, Primary care record and Outside ED record Tests considered The following testing was considered but not selected: As above Prescription Management I considered prescription management with: Other Chronic Conditions Patient?s care impacted by: Other Social Determinants Patient?s care significantly limited by Social Determinants of Health including: Other Social Determinant of Health Discharge Plan Discharge Clinical Impression: Suicide ideation, Abdominal pain Patient Disposition: Admitted As Inpatient Print Language: Citizen Of [place]
[2024-08-28] MEDS: Magnesium Hydrox/Alum Hydrox 30 ML ORAL.SUSP PO (09:21)
[2024-08-28] MEDS: Acetaminophen 325 MG TABLET 650 MG PO (09:21)
[2024-08-28] MEDS: Famotidine 20 MG TABLET PO (09:21)
--- NOTE | 2024-08-28 09:25 | PC.NURSE ---
patient reporting severe epigastric/chest pain. Pt being brought to ultrasound at this time by KIRAN Zhou and
--- NOTE | 2024-08-28 09:43 | MHC.CARE ---
Pt meets the criteria for IPLOC secondary to endorsing SI with a plan to jump off a bridge or hang himself. Section 12a in chart. Provider in agreement.
--- NOTE | 2024-08-28 16:31 | PHA.MEDREC ---
Addendum entered by Guillermo Carr RPh 08/28/24 16:51: Med rec reviewd by [facility]. Original Note: Pharmacy Consult ? Medication Reconciliation Pharmacy reviewed med rec done by nursing. Spoke with patients nurse and she states she spoke with the patient and she said he is not taking anything right now.
[2024-08-28 17:15] VITALS: BP 117/73; PULSE 98; RESP 20; TEMP 36.8; O2SAT 96
[2024-08-28 17:26] VITALS: BMI 30.8
--- NOTE | 2024-08-28 18:46 | PC.ADMIT ---
Blaise (?All?) is a 29yr old male admitted on a Conditional Voluntary, for SI, high anxiety & depression.? All was brought in to [facility] ED with abdominal pain.? Precipitating this event he had an argument with his girlfriend and they broke up.? All is now homeless, as he?d been staying at his girlfriend's? home. He hopes to establish providers upon discharge & establish stable housing. Pt c/o severe abdominal pain since admission.? He states this has happens to him at times & is known to be associated with panic attacks/anxiety.? Multiple diagnostics were performed in the ED and he has been medically cleared. All was born in [place] but grew up in the .? His father resides in [place] & All is without a family support system.? All feels hopeless & lost.? All endorses continued suicidal thoughts with a plan to hang himself, ?or kill himself in any other way?.? All has a therapist at [facility] but does not yet have a prescriber. He takes no home medications at this time.? He is calm, cooperative & tearful during admission. All is open to treatment here, he is hoping to be stabilized on medications.? His biggest concerns upon discharge are establishing providers and homelessness. Skin check was unremarkable. He was oriented to the unit & placed on 15min safety checks.
[2024-08-28] MEDS: Nicotine Polacrilex 2 MG GUM 4 MG BUCCAL (19:08)
[2024-08-28 20:00] VITALS: BP 111/64; PULSE 93; RESP 18; TEMP 36.9; O2SAT 97
[2024-08-28] MEDS: traZODone HCL 50 MG TABLET PO (23:52)
[2024-08-29 08:00] VITALS: BP 112/59; PULSE 69; RESP 16; TEMP 36.1; O2SAT 98
[2024-08-29 08:38] LABS: Estimated Average Glucose 100 mg/dL; Hemoglobin A1C 134.4808 umol/L; Hemoglobin A1c % 5.1 % (<6.0)
[2024-08-29] MEDS: Famotidine 20 MG TABLET PO (08:43)
[2024-08-29] MEDS: Nicotine Polacrilex 2 MG GUM 4 MG BUCCAL ×2 (08:44→18:35)
[2024-08-29] MEDS: hydrOXYzine HCL 25 MG TABLET PO (08:49)
[2024-08-29 08:59] LABS: Cholesterol 166 mg/dL (<200); HDL Cholesterol 32 mg/dL (>40); LDL Cholesterol Calculated 107 mg/dL (<100); Triglycerides 139 mg/dL (<150)
[2024-08-29 09:18] LABS: TSH reflex Free T4 1.64 uIU/mL (0.32-4.0)
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
[2024-08-29 20:00] VITALS: BP 100/61; PULSE 93; TEMP 37.3; O2SAT 97
[2024-08-29] MEDS: Mirtazapine 7.5 MG TABLET PO (21:09)
[2024-08-30] MEDS: Famotidine 20 MG TABLET PO (12:11)
[2024-08-30] MEDS: Nicotine Polacrilex 2 MG GUM 4 MG BUCCAL ×3 (12:11→19:42)
[2024-08-30] MEDS: hydrOXYzine HCL 25 MG TABLET PO (12:30)
[2024-08-30] MEDS: Nicotine 21 MG PATCH.TD24 TRANSDERMA (13:17)
--- NOTE | 2024-08-30 14:09 | HO.PSYCHPN ---
Subjective Subjective Date of Service: 08/30/24 Reason For Visit: SI Subjective Notes: Conditional Voluntary Interim History: Active on unit, social with peers. observing laughing and joking with peers. However, reports feeling anxious and depressed ; states he is having auditory hallucinations of a voices saying, I love you. Come back. Hurt yourself . He also reports suicidal ideation with no plan. denies HI/VH. Encouraged to attend groups and utilize PRN Zyprexa if needed. Medication Compliance: Yes Side effects from medications: No Attending Groups: Intermittent Mental Status Exam Mental Status Exam Patient Appearance: Well Grooomed Patient Orientation: Person, Place, Time and Situation Level of Consciousness: Awake and Alert Patient Behavior: Appropriate, Cooperative and Good Eye Contact Mood Description: Calm Affect Description: Calm Ability to Follow Directions: Good Speech Pattern: Clear and Appropriate Memory Description: Intact Hallucinations: Auditory Delusions: Not Present Thought Process: Intact Thought Content: positive for Intact and positive for Suicidal Ideation Judgement: Poor Diagnostics Vital Signs (24Hr): Vital Signs - 24 hr 08/29/24 20:00 Temperature 99.1 F Pulse Rate 93 Blood Pressure 100/61 Pulse Oximetry 97 Oxygen Delivery Method Room Air BMI result Body Mass Index 30.8 Labs 08/28/24 02:13 08/28/24 02:13 Labs: Laboratory Results - last 48 hr 08/29/24 08:11 Estimat Average Glucose 100 Hemoglobin A1c % 5.1 Triglycerides 139 Cholesterol 166 LDL Cholesterol, Calc 107 H HDL Cholesterol 32 L TSH 1.64 Imaging Radiology Impressions: ITS Impressions Chest X-Ray 08/28/24 09:24 IMPRESSION: Low lung volumes. No acute cardiopulmonary abnormality. Electronically signed by: Luis Bingham MD 08/28/2024 09:58 AM EST RP Abdomen Ultrasound 08/28/24 09:28 IMPRESSION: The pancreas is obscured by bowel gas. Otherwise unremarkable right upper quadrant ultrasound. Electronically signed by: Luis Bingham MD 08/28/2024 09:56 AM EST RP Medications Medications Current Medications Acetaminophen (Acetaminophen 325 Mg Tablet) 650 mg PO Q6H PRN PRN Reason: Headache/Pain Mild Scale (1-3) Al Hydroxide/Mg Hydroxide (Magnesium Hydrox/Alum Hydrox 30 Ml Oral.Susp) 30 ml PO Q6H PRN PRN Reason: GI Upset Famotidine (Famotidine 20 Mg Tablet) 20 mg PO DAILY [facility] Last Admin: 08/30/24 12:11 Dose: 20 mg Hydroxyzine HCl (Hydroxyzine Hcl 25 Mg Tablet) 25 mg PO Q6H PRN PRN Reason: Anxiety Last Admin: 08/29/24 08:49 Dose: 25 mg Magnesium Hydroxide (Milk Of Magnesia 30 Ml Oral.Susp) 30 ml PO DAILY PRN PRN Reason: Constipation Mirtazapine (Mirtazapine 7.5 Mg Tablet) 7.5 mg PO BEDTIME [facility] Last Admin: 08/29/24 21:09 Dose: 7.5 mg Nicotine (Nicotine 21 Mg Patch.Td24) 21 mg TRANSDERMA DAILY [facility] Last Admin: 08/30/24 13:17 Dose: 21 mg Nicotine Polacrilex (Nicotine Polacrilex 2 Mg Gum) 4 mg BUCCAL Q2H PRN PRN Reason: Nicotine Cravings Last Admin: 08/30/24 12:11 Dose: 4 mg Olanzapine (Olanzapine 5 Mg Tablet) 5 mg PO TID PRN PRN Reason: agitation Trazodone HCl (Trazodone Hcl 50 Mg Tablet) 50 mg PO BEDTIME MRX1 PRN PRN Reason: Insomnia Last Admin: 08/28/24 23:52 Dose: 50 mg Allergies Allergies Allergy/AdvReac Type Severity Reaction Status Date / Time No Known Allergies Allergy Verified 08/28/24 01:09 Assessment & Plan Assessment & Plan (1) Adjustment reaction with mixed emotional features: Status: Acute Code(s): F43.29 - Adjustment disorder with other symptoms (2) Anxiety: Status: Acute Code(s): F41.9 - Anxiety disorder, unspecified (3) Suicide ideation: Status: Acute Code(s): R45.851 - Suicidal ideations (4) Abdominal pain: Status: Acute Code(s): R10.9 - Unspecified abdominal pain Plan Adjustment Reaction, mixed, SI, Anxiety, Abdominal pain. Plan: Admit, CV, 15 minute checks Diagnostics as needed Collateral Contact Encourage milieu Remeron 7.5 mg HS Discharge planning 08/30: Active on unit, social with peers. observing laughing and joking with peers. However, reports feeling anxious and depressed ; states he is having auditory hallucinations of a voices saying, I love you. Come back. Hurt yourself . He also reports suicidal ideation with no plan. denies HI/VH. Encouraged to attend groups and utilize PRN Zyprexa if needed. Patient educated on: diagnosis, medication risk/benefits and therapeutic strategies Reason for continued inpatient stay Substantial Risk for: harm to self and med/psych decompensation Time Spent With Patient Time: Total time managing care of this patient today _20___ minutes.
[2024-08-30 20:00] VITALS: BP 123/80; PULSE 119; TEMP 37; O2SAT 97
[2024-08-30] MEDS: Mirtazapine 7.5 MG TABLET PO (23:04)
[2024-08-31 08:00] VITALS: BP 110/56; PULSE 80; TEMP 36.8; O2SAT 100
--- NOTE | 2024-08-31 09:48 | P.PNPSI_ITS ---
Subjective Subjective Date of Service: 08/31/24 Reason For Visit: SI Interim History: met with patient; discussed with team; reviewed chart Feels that he is overall doing better but still depressed and agrees to increase Remeron. Patient still very focused on struggles with his girlfriend and frustrations with her ex partner Mental Status Exam Mental Status Exam Patient Appearance: Well Grooomed Patient Orientation: Person, Place, Time and Situation Level of Consciousness: Awake and Alert Patient Behavior: Appropriate, Cooperative and Good Eye Contact Mood Description: Calm, Depressed and Anxious (Though better) Affect Description: Constricted Ability to Follow Directions: Good Speech Pattern: Clear and Appropriate Memory Description: Intact Hallucinations: Auditory Delusions: Not Present Thought Process: Intact Thought Content: positive for Intact, positive for Perseveration (Relationship with partner and struggles with her ex) and positive for Suicidal Ideation (Denies) Judgement and Insight: Fair Diagnostics Vital Signs (24Hr): Vital Signs - 24 hr 08/30/24 20:00 08/31/24 08:00 Temperature 98.6 F 98.2 F Pulse Rate 119 H 80 Blood Pressure 123/80 110/56 L Pulse Oximetry 97 100 Oxygen Delivery Method Room Air Room Air BMI result Body Mass Index 30.8 Labs 08/28/24 02:13 08/28/24 02:13 Imaging Radiology Impressions: ITS Impressions Chest X-Ray 08/28/24 09:24 IMPRESSION: Low lung volumes. No acute cardiopulmonary abnormality. Electronically signed by: Luis Bingham MD 08/28/2024 09:58 AM EST RP Abdomen Ultrasound 08/28/24 09:28 IMPRESSION: The pancreas is obscured by bowel gas. Otherwise unremarkable right upper quadrant ultrasound. Electronically signed by: Luis Bingham MD 08/28/2024 09:56 AM EST RP Medications Medications Current Medications Acetaminophen (Acetaminophen 325 Mg Tablet) 650 mg PO Q6H PRN PRN Reason: Headache/Pain Mild Scale (1-3) Al Hydroxide/Mg Hydroxide (Magnesium Hydrox/Alum Hydrox 30 Ml Oral.Susp) 30 ml PO Q6H PRN PRN Reason: GI Upset Famotidine (Famotidine 20 Mg Tablet) 20 mg PO DAILY [facility] Last Admin: 08/30/24 12:11 Dose: 20 mg Hydroxyzine HCl (Hydroxyzine Hcl 25 Mg Tablet) 25 mg PO Q6H PRN PRN Reason: Anxiety Last Admin: 08/30/24 12:30 Dose: 25 mg Magnesium Hydroxide (Milk Of Magnesia 30 Ml Oral.Susp) 30 ml PO DAILY PRN PRN Reason: Constipation Mirtazapine (Mirtazapine 7.5 Mg Tablet) 7.5 mg PO BEDTIME [facility] Last Admin: 08/30/24 23:04 Dose: 7.5 mg Nicotine (Nicotine 21 Mg Patch.Td24) 21 mg TRANSDERMA DAILY [facility] Last Admin: 08/31/24 09:45 Dose: Not Given Nicotine Polacrilex (Nicotine Polacrilex 2 Mg Gum) 4 mg BUCCAL Q2H PRN PRN Reason: Nicotine Cravings Last Admin: 08/30/24 19:42 Dose: 4 mg Olanzapine (Olanzapine 5 Mg Tablet) 5 mg PO TID PRN PRN Reason: agitation Trazodone HCl (Trazodone Hcl 50 Mg Tablet) 50 mg PO BEDTIME MRX1 PRN PRN Reason: Insomnia Last Admin: 08/28/24 23:52 Dose: 50 mg Allergies Allergies Allergy/AdvReac Type Severity Reaction Status Date / Time No Known Allergies Allergy Verified 08/28/24 01:09 Assessment & Plan Assessment & Plan (1) Adjustment reaction with mixed emotional features: Status: Acute Code(s): F43.29 - Adjustment disorder with other symptoms (2) Anxiety: Status: Acute Code(s): F41.9 - Anxiety disorder, unspecified (3) Suicide ideation: Status: Acute Code(s): R45.851 - Suicidal ideations (4) Abdominal pain: Status: Acute Code(s): R10.9 - Unspecified abdominal pain Plan Adjustment Reaction, mixed, SI, Anxiety, Abdominal pain. 2: Active on unit, social with peers. observing laughing and joking with peers. However, reports feeling anxious and depressed ; states he is having auditory hallucinations of a voices saying, I love you. Come back. Hurt yourself . He also reports suicidal ideation with no plan. denies HI/VH. Encouraged to attend groups and utilize PRN Zyprexa if needed. 08/31 Feels that he is overall doing better but still depressed and agrees to increase Remeron. Patient still very focused on struggles with his girlfriend and frustrations with her ex partner Plan: Admit, CV, 15 minute checks Increase Remeron to 15 mg Diagnostics as needed Collateral Contact Encourage milieu Discharge planning Patient educated on: diagnosis, medication risk/benefits and therapeutic strategies Informed Consent: understands and further education needed Reason for continued inpatient stay Substantial Risk for: stable for discharge and rapid decompensation Time Spent With Patient Time: Total time managing care of this patient today ____ minutes.
[2024-08-31] MEDS: Nicotine 21 MG PATCH.TD24 TRANSDERMA (11:03)
[2024-08-31] MEDS: hydrOXYzine HCL 25 MG TABLET PO (11:05)
[2024-08-31] MEDS: Famotidine 20 MG TABLET PO (11:06)
[2024-08-31] MEDS: Nicotine Polacrilex 2 MG GUM 4 MG BUCCAL ×4 (11:06→20:59)
[2024-08-31 19:47] VITALS: BP 136/89; PULSE 138; RESP 16; TEMP 37.2; O2SAT 96
[2024-08-31] MEDS: Mirtazapine 15 MG TABLET PO (22:54)
[2024-09-01] MEDS: traZODone HCL 50 MG TABLET PO ×2 (00:52→22:43)
[2024-09-01 08:00] VITALS: BP 117/66; PULSE 70; TEMP 36.6; O2SAT 97
--- NOTE | 2024-09-01 08:14 | P.PNPSI_ITS ---
Subjective Subjective Date of Service: 09/01/24 Reason For Visit: SI Interim History: met with patient; discussed with team; reviewed chart. Overall reports mood is getting better. Is feeling supported. Also reports being fearful that if he is discharged he would hurt himself. Hopeful that treatment team and Community Team can coordinate around housing supports and financial supports. Reports intermittent suicidal thoughts on the unit, hallucinations still present but not command in nature. Feeling safe in the hospital. Sleep broken. Overall we discussed scheduling trazodone as that was helpful last night. Otherwise no med changes. Review of Systems Review of Systems unremarkable Mental Status Exam Mental Status Exam Patient Appearance: Well Grooomed Patient Orientation: Person, Place, Time and Situation Level of Consciousness: Awake and Alert Patient Behavior: Appropriate, Cooperative and Good Eye Contact Mood Description: Calm, Depressed and Anxious (Though better) Affect Description: Constricted Patient Cognition Impaired: No Ability to Follow Directions: Good Speech Pattern: Clear and Appropriate Memory Description: Intact Thought Content: positive for Suicidal Ideation ( No plans or intent) Diagnostics Vital Signs (24Hr): Vital Signs - 24 hr 08/31/24 19:47 Temperature 98.9 F Pulse Rate 138 H Respiratory Rate 16 Blood Pressure 136/89 Pulse Oximetry 96 Oxygen Delivery Method Room Air BMI result Body Mass Index 30.8 Labs 08/28/24 02:13 08/28/24 02:13 Imaging Radiology Impressions: ITS Impressions Chest X-Ray 08/28/24 09:24 IMPRESSION: Low lung volumes. No acute cardiopulmonary abnormality. Electronically signed by: Luis Bingham MD 08/28/2024 09:58 AM EST RP Abdomen Ultrasound 08/28/24 09:28 IMPRESSION: The pancreas is obscured by bowel gas. Otherwise unremarkable right upper quadrant ultrasound. Electronically signed by: Luis Bingham MD 08/28/2024 09:56 AM EST RP Medications Medications Current Medications Acetaminophen (Acetaminophen 325 Mg Tablet) 650 mg PO Q6H PRN PRN Reason: Headache/Pain Mild Scale (1-3) Al Hydroxide/Mg Hydroxide (Magnesium Hydrox/Alum Hydrox 30 Ml Oral.Susp) 30 ml PO Q6H PRN PRN Reason: GI Upset Famotidine (Famotidine 20 Mg Tablet) 20 mg PO DAILY [facility] Last Admin: 08/31/24 11:06 Dose: 20 mg Hydroxyzine HCl (Hydroxyzine Hcl 25 Mg Tablet) 25 mg PO Q6H PRN PRN Reason: Anxiety Last Admin: 08/31/24 11:05 Dose: 25 mg Magnesium Hydroxide (Milk Of Magnesia 30 Ml Oral.Susp) 30 ml PO DAILY PRN PRN Reason: Constipation Mirtazapine (Mirtazapine 15 Mg Tablet) 15 mg PO BEDTIME [facility] Last Admin: 08/31/24 22:54 Dose: 15 mg Nicotine (Nicotine 21 Mg Patch.Td24) 21 mg TRANSDERMA DAILY [facility] Last Admin: 08/31/24 11:03 Dose: 21 mg Nicotine Polacrilex (Nicotine Polacrilex 2 Mg Gum) 4 mg BUCCAL Q2H PRN PRN Reason: Nicotine Cravings Last Admin: 08/31/24 20:59 Dose: 4 mg Olanzapine (Olanzapine 5 Mg Tablet) 5 mg PO TID PRN PRN Reason: agitation Trazodone HCl (Trazodone Hcl 50 Mg Tablet) 50 mg PO BEDTIME MRX1 PRN PRN Reason: Insomnia Last Admin: 09/01/24 00:52 Dose: 50 mg Allergies Allergies Allergy/AdvReac Type Severity Reaction Status Date / Time No Known Allergies Allergy Verified 08/28/24 01:09 Assessment & Plan Assessment & Plan (1) Adjustment reaction with mixed emotional features: Status: Acute Code(s): F43.29 - Adjustment disorder with other symptoms (2) Anxiety: Status: Acute Code(s): F41.9 - Anxiety disorder, unspecified (3) Suicide ideation: Status: Acute Code(s): R45.851 - Suicidal ideations (4) Abdominal pain: Status: Acute Code(s): R10.9 - Unspecified abdominal pain Plan Adjustment Reaction, mixed, SI, Anxiety, Abdominal pain. 2/: Active on unit, social with peers. observing laughing and joking with peers. However, reports feeling anxious and depressed ; states he is having auditory hallucinations of a voices saying, I love you. Come back. Hurt yourself . He also reports suicidal ideation with no plan. denies HI/VH. Encouraged to attend groups and utilize PRN Zyprexa if needed. 2/ Feels that he is overall doing better but still depressed and agrees to increase Remeron. Patient still very focused on struggles with his girlfriend and frustrations with her ex partner 09/01: Overall we discussed scheduling trazodone as that was helpful last night. Otherwise no med changes Plan: Admit, CV, 15 minute checks Increase Remeron to 15 mg Diagnostics as needed Collateral Contact Encourage milieu Discharge planning Reason for continued inpatient stay Substantial Risk for: harm to self and rapid decompensation Time Spent With Patient Time: Total time managing care of this patient today ____ minutes.
[2024-09-01] MEDS: Nicotine 21 MG PATCH.TD24 TRANSDERMA (08:29)
[2024-09-01] MEDS: Famotidine 20 MG TABLET PO (08:29)
[2024-09-01] MEDS: Nicotine Polacrilex 2 MG GUM 4 MG BUCCAL ×3 (13:01→18:43)
[2024-09-01] MEDS: Albuterol Sulfate 90 MCG 8 GM INHALER 2 PUFF INHALE ×2 (15:22→20:18)
[2024-09-01 19:47] VITALS: BP 124/93; PULSE 120; RESP 16; TEMP 36.3; O2SAT 96
[2024-09-01] MEDS: Mirtazapine 15 MG TABLET PO (22:43)
[2024-09-02] MEDS: Acetaminophen 325 MG TABLET 650 MG PO (00:41)
[2024-09-02] MEDS: hydrOXYzine HCL 25 MG TABLET PO (00:42)
[2024-09-02] MEDS: traZODone HCL 50 MG TABLET PO ×2 (00:42→22:45)
[2024-09-02 08:00] VITALS: BP 128/82; PULSE 90; RESP 16; TEMP 36.4; O2SAT 98
[2024-09-02] MEDS: Famotidine 20 MG TABLET PO (08:37)
[2024-09-02] MEDS: Nicotine 21 MG PATCH.TD24 TRANSDERMA (08:37)
--- NOTE | 2024-09-02 11:20 | HO.PSYCHPN ---
Subjective Subjective Date of Service: 09/02/24 Reason For Visit: SI Interim History: met with patient; discussed with team; reviewed chart. Overall spending more time in bed today as his back is hurting him. Otherwise reports mood is getting a little bit better, feeling supported, but remains very concerned that if he is discharged he would hurt himself. Hopeful that treatment team and Community Team can coordinate around housing supports and financial supports. Reports intermittent suicidal thoughts on the unit, hallucinations still present but not command in nature. Sleep better with trazodone Medication Compliance: Yes Side effects from medications: No Attending Groups: Intermittent Review of Systems Acute medical concerns: No Review of Systems Review of Systems Back pain Mental Status Exam Mental Status Exam Patient Appearance: Well Grooomed Patient Orientation: Person, Place, Time and Situation Level of Consciousness: Awake and Alert Patient Behavior: Appropriate, Cooperative and Good Eye Contact Mood Description: Calm, Depressed and Anxious (Though better) Affect Description: Constricted Patient Cognition Impaired: No Ability to Follow Directions: Good Speech Pattern: Clear and Appropriate Memory Description: Intact Depressive Symptoms: Thoughts of /Suicide Diagnostics Vital Signs (24Hr): Vital Signs - 24 hr 09/01/24 19:47 09/02/24 08:00 Temperature 97.3 F 97.5 F Pulse Rate 120 H 90 Respiratory Rate 16 16 Blood Pressure 124/93 H 128/82 Pulse Oximetry 96 98 Oxygen Delivery Method Room Air Room Air BMI result Body Mass Index 30.8 Labs 08/28/24 02:13 08/28/24 02:13 Imaging Radiology Impressions: ITS Impressions Chest X-Ray 08/28/24 09:24 IMPRESSION: Low lung volumes. No acute cardiopulmonary abnormality. Electronically signed by: Luis Bingham MD 08/28/2024 09:58 AM EST RP Abdomen Ultrasound 08/28/24 09:28 IMPRESSION: The pancreas is obscured by bowel gas. Otherwise unremarkable right upper quadrant ultrasound. Electronically signed by: Luis Bingham MD 08/28/2024 09:56 AM EST RP Medications Medications Current Medications Acetaminophen (Acetaminophen 325 Mg Tablet) 650 mg PO Q6H PRN PRN Reason: Headache/Pain Mild Scale (1-3) Last Admin: 09/02/24 00:41 Dose: 650 mg Al Hydroxide/Mg Hydroxide (Magnesium Hydrox/Alum Hydrox 30 Ml Oral.Susp) 30 ml PO Q6H PRN PRN Reason: GI Upset Albuterol Sulfate (Albuterol Sulfate 90 Mcg 8 Gm Inhaler) 2 puff INHALE RQ4H PRN PRN Reason: Shortness of Breath/Wheezing Last Admin: 09/01/24 20:18 Dose: 2 puff Famotidine (Famotidine 20 Mg Tablet) 20 mg PO DAILY [facility] Last Admin: 09/02/24 08:37 Dose: 20 mg Hydroxyzine HCl (Hydroxyzine Hcl 25 Mg Tablet) 25 mg PO Q6H PRN PRN Reason: Anxiety Last Admin: 09/02/24 00:42 Dose: 25 mg Magnesium Hydroxide (Milk Of Magnesia 30 Ml Oral.Susp) 30 ml PO DAILY PRN PRN Reason: Constipation Mirtazapine (Mirtazapine 15 Mg Tablet) 15 mg PO BEDTIME [facility] Last Admin: 09/01/24 22:43 Dose: 15 mg Nicotine (Nicotine 21 Mg Patch.Td24) 21 mg TRANSDERMA DAILY [facility] Last Admin: 09/02/24 08:37 Dose: 21 mg Nicotine Polacrilex (Nicotine Polacrilex 2 Mg Gum) 4 mg BUCCAL Q2H PRN PRN Reason: Nicotine Cravings Last Admin: 09/01/24 18:43 Dose: 4 mg Olanzapine (Olanzapine 5 Mg Tablet) 5 mg PO TID PRN PRN Reason: agitation Trazodone HCl (Trazodone Hcl 50 Mg Tablet) 50 mg PO BEDTIME MRX1 PRN PRN Reason: Insomnia Last Admin: 09/02/24 00:42 Dose: 50 mg Trazodone HCl (Trazodone Hcl 50 Mg Tablet) 50 mg PO DAILY@2300 [facility] Last Admin: 09/01/24 22:43 Dose: 50 mg Allergies Allergies Allergy/AdvReac Type Severity Reaction Status Date / Time No Known Allergies Allergy Verified 08/28/24 01:09 Assessment & Plan Assessment & Plan (1) Adjustment reaction with mixed emotional features: Status: Acute Code(s): F43.29 - Adjustment disorder with other symptoms (2) Anxiety: Status: Acute Code(s): F41.9 - Anxiety disorder, unspecified (3) Suicide ideation: Status: Acute Code(s): R45.851 - Suicidal ideations (4) Abdominal pain: Status: Acute Code(s): R10.9 - Unspecified abdominal pain Plan Adjustment Reaction, mixed, SI, Anxiety, Abdominal pain. 08/30: Active on unit, social with peers. observing laughing and joking with peers. However, reports feeling anxious and depressed ; states he is having auditory hallucinations of a voices saying, I love you. Come back. Hurt yourself . He also reports suicidal ideation with no plan. denies HI/VH. Encouraged to attend groups and utilize PRN Zyprexa if needed. 08/31 Feels that he is overall doing better but still depressed and agrees to increase Remeron. Patient still very focused on struggles with his girlfriend and frustrations with her ex partner 09/01: Overall we discussed scheduling trazodone as that was helpful last night. Otherwise no med changes 09/02: lidocaine patches for back pain, otherwise no changes he Plan: Admit, CV, 15 minute checks Increase Remeron to 15 mg Diagnostics as needed Collateral Contact Encourage milieu Discharge planning Reason for continued inpatient stay Substantial Risk for: harm to self Time Spent With Patient Time: Total time managing care of this patient today ____ minutes.
[2024-09-02] MEDS: Albuterol Sulfate 90 MCG 8 GM INHALER 2 PUFF INHALE ×3 (12:18→22:56)
[2024-09-02] MEDS: OLANZapine 5 MG TABLET PO (12:22)
[2024-09-02] MEDS: Nicotine Polacrilex 2 MG GUM 4 MG BUCCAL ×3 (12:42→18:56)
[2024-09-02] MEDS: Lidocaine 4 % Patch ADH..PATCH 2 PATCH TRANSDERMA (12:49)
[2024-09-02 20:00] VITALS: BP 129/65; PULSE 108; RESP 16; TEMP 36.9; O2SAT 98
[2024-09-02] MEDS: Mirtazapine 15 MG TABLET PO (22:45)
[2024-09-03 08:04] VITALS: BP 108/76; PULSE 78; RESP 16; TEMP 36.3; O2SAT 96
--- NOTE | 2024-09-03 10:14 | HO.PSYCHPN ---
Subjective Subjective Date of Service: 09/03/24 Reason For Visit: SI Subjective Notes: Conditional Voluntary Healthcare Proxy: No Guardianship: No Interim History: Pt trialing Olanzapine for racing thoughts. Team reports minimal milieu involvement. In process of referral to [facility]. Denies SI/HI/AH/VH. In bed, awake, relaxed and interactive with room-mate. No questions or concerns he reports today. Medication Compliance: Yes Side effects from medications: No Attending Groups: No Review of Systems Acute medical concerns: No Review of Systems Review of Systems denies Mental Status Exam Mental Status Exam Patient Appearance: Appropriate Patient Orientation: Person, Place, Time and Situation Level of Consciousness: Alert Patient Behavior: Avoidant Mood Description: Flat Affect Description: Flat Patient Cognition Impaired: No Ability to Follow Directions: Good Speech Pattern: Spontaneous Speech Hallucinations: None Delusions: Not Present Thought Process: Intact Thought Content: positive for [place] and positive for Suicidal Ideation (denies) Judgement: Good Diagnostics Vital Signs (24Hr): Vital Signs - 24 hr 09/02/24 20:00 09/03/24 08:04 Temperature 98.5 F 97.3 F Pulse Rate 108 H 78 Respiratory Rate 16 16 Blood Pressure 129/65 108/76 Pulse Oximetry 98 96 Oxygen Delivery Method Room Air Room Air BMI result Body Mass Index 30.8 Labs 08/28/24 02:13 08/28/24 02:13 Imaging Radiology Impressions: ITS Impressions Chest X-Ray 08/28/24 09:24 IMPRESSION: Low lung volumes. No acute cardiopulmonary abnormality. Electronically signed by: Luis Bingham MD 08/28/2024 09:58 AM EST RP Abdomen Ultrasound 08/28/24 09:28 IMPRESSION: The pancreas is obscured by bowel gas. Otherwise unremarkable right upper quadrant ultrasound. Electronically signed by: Luis Bingham MD 08/28/2024 09:56 AM EST RP Medications Medications Current Medications Acetaminophen (Acetaminophen 325 Mg Tablet) 650 mg PO Q6H PRN PRN Reason: Headache/Pain Mild Scale (1-3) Last Admin: 09/02/24 00:41 Dose: 650 mg Al Hydroxide/Mg Hydroxide (Magnesium Hydrox/Alum Hydrox 30 Ml Oral.Susp) 30 ml PO Q6H PRN PRN Reason: GI Upset Albuterol Sulfate (Albuterol Sulfate 90 Mcg 8 Gm Inhaler) 2 puff INHALE RQ4H PRN PRN Reason: Shortness of Breath/Wheezing Last Admin: 09/02/24 22:56 Dose: 2 puff Famotidine (Famotidine 20 Mg Tablet) 20 mg PO DAILY [facility] Last Admin: 09/02/24 08:37 Dose: 20 mg Hydroxyzine HCl (Hydroxyzine Hcl 25 Mg Tablet) 25 mg PO Q6H PRN PRN Reason: Anxiety Last Admin: 09/02/24 00:42 Dose: 25 mg Lidocaine (Lidocaine 4 % Patch Adh..Patch) 2 patch TRANSDERMA DAILY [facility]; Protocol Last Admin: 09/02/24 12:49 Dose: 2 patch Magnesium Hydroxide (Milk Of Magnesia 30 Ml Oral.Susp) 30 ml PO DAILY PRN PRN Reason: Constipation Mirtazapine (Mirtazapine 15 Mg Tablet) 15 mg PO BEDTIME [facility] Last Admin: 09/02/24 22:45 Dose: 15 mg Nicotine (Nicotine 21 Mg Patch.Td24) 21 mg TRANSDERMA DAILY [facility] Last Admin: 09/02/24 08:37 Dose: 21 mg Nicotine Polacrilex (Nicotine Polacrilex 2 Mg Gum) 4 mg BUCCAL Q2H PRN PRN Reason: Nicotine Cravings Last Admin: 09/02/24 18:56 Dose: 4 mg Olanzapine (Olanzapine 5 Mg Tablet) 5 mg PO TID PRN PRN Reason: agitation Last Admin: 09/02/24 12:22 Dose: 5 mg Trazodone HCl (Trazodone Hcl 50 Mg Tablet) 50 mg PO BEDTIME MRX1 PRN PRN Reason: Insomnia Last Admin: 09/02/24 00:42 Dose: 50 mg Trazodone HCl (Trazodone Hcl 50 Mg Tablet) 50 mg PO DAILY@2300 [facility] Last Admin: 09/02/24 22:45 Dose: 50 mg Allergies Allergies Allergy/AdvReac Type Severity Reaction Status Date / Time No Known Allergies Allergy Verified 08/28/24 01:09 Assessment & Plan Assessment & Plan (1) Adjustment reaction with mixed emotional features: Status: Acute Code(s): F43.29 - Adjustment disorder with other symptoms (2) Anxiety: Status: Acute Code(s): F41.9 - Anxiety disorder, unspecified (3) Suicide ideation: Status: Acute Code(s): R45.851 - Suicidal ideations (4) Abdominal pain: Status: Acute Code(s): R10.9 - Unspecified abdominal pain Plan Adjustment Reaction, mixed, SI, Anxiety, Abdominal pain. 08/30: Active on unit, social with peers. observing laughing and joking with peers. However, reports feeling anxious and depressed ; states he is having auditory hallucinations of a voices saying, I love you. Come back. Hurt yourself . He also reports suicidal ideation with no plan. denies HI/VH. Encouraged to attend groups and utilize PRN Zyprexa if needed. 08/31 Feels that he is overall doing better but still depressed and agrees to increase Remeron. Patient still very focused on struggles with his girlfriend and frustrations with her ex partner 09/01: Overall we discussed scheduling trazodone as that was helpful last night. Otherwise no med changes 09/02: lidocaine patches for back pain, otherwise no changes he 09/03: Continue regime and plan Plan: Admit, CV, 15 minute checks Increase Remeron to 15 mg Diagnostics as needed Collateral Contact Encourage milieu Discharge planning Reason for continued inpatient stay Substantial Risk for: rapid decompensation Time Spent With Patient Time: Total time managing care of this patient today ____ minutes.
[2024-09-03] MEDS: Lidocaine 4 % Patch ADH..PATCH 2 PATCH TRANSDERMA (10:20)
[2024-09-03] MEDS: Famotidine 20 MG TABLET PO (10:20)
[2024-09-03] MEDS: Nicotine 21 MG PATCH.TD24 TRANSDERMA (10:30)
[2024-09-03] MEDS: Nicotine Polacrilex 2 MG GUM 4 MG BUCCAL ×5 (10:31→21:40)
[2024-09-03] MEDS: Albuterol Sulfate 90 MCG 8 GM INHALER 2 PUFF INHALE ×2 (10:31→21:40)
[2024-09-03] MEDS: Acetaminophen 325 MG TABLET 650 MG PO ×2 (12:53→21:36)
[2024-09-03] MEDS: OLANZapine 5 MG TABLET PO (12:53)
[2024-09-03 20:00] VITALS: BP 136/77; PULSE 115; TEMP 36.6; O2SAT 100
[2024-09-03] MEDS: Mirtazapine 15 MG TABLET PO (21:34)
[2024-09-03] MEDS: traZODone HCL 50 MG TABLET PO (23:15)
[2024-09-04 08:00] VITALS: BP 125/63; PULSE 78; RESP 16; TEMP 36.8; O2SAT 96
[2024-09-04] MEDS: Nicotine 21 MG PATCH.TD24 TRANSDERMA (08:23)
[2024-09-04] MEDS: Lidocaine 4 % Patch ADH..PATCH 2 PATCH TRANSDERMA (08:24)
[2024-09-04] MEDS: Famotidine 20 MG TABLET PO (08:24)
--- NOTE | 2024-09-04 10:12 | P.PNPSI_ITS ---
Subjective Subjective Date of Service: 09/04/24 Reason For Visit: SI Subjective Notes: Conditional Voluntary Healthcare Proxy: No Guardianship: No Medical Problems Affecting Mental Status: No Interim History: Awaiting placement options. Reports regime is tolerated, denies SI Denies SI,HI,AH,VH Medication Compliance: Yes Side effects from medications: No Attending Groups: Intermittent Review of Systems Acute medical concerns: No Review of Systems Review of Systems Denies Mental Status Exam Mental Status Exam Patient Appearance: Appropriate Patient Orientation: Person, Place, Time and Situation Level of Consciousness: Alert Patient Behavior: Avoidant Mood Description: Flat Affect Description: Flat Patient Cognition Impaired: No Ability to Follow Directions: Good Speech Pattern: Spontaneous Speech Hallucinations: None Delusions: Not Present Thought Process: Intact Thought Content: positive for [place] and positive for Suicidal Ideation (denies) Judgement: Good Diagnostics Vital Signs (24Hr): Vital Signs - 24 hr 09/03/24 20:00 09/04/24 08:00 Temperature 97.8 F 98.2 F Pulse Rate 115 H 78 Respiratory Rate 16 Blood Pressure 136/77 125/63 Pulse Oximetry 100 96 Oxygen Delivery Method Room Air Room Air BMI result Body Mass Index 30.8 Labs 08/28/24 02:13 08/28/24 02:13 Imaging Radiology Impressions: ITS Impressions Chest X-Ray 08/28/24 09:24 IMPRESSION: Low lung volumes. No acute cardiopulmonary abnormality. Electronically signed by: Luis Bingham MD 08/28/2024 09:58 AM Filtec Abdomen Ultrasound 08/28/24 09:28 IMPRESSION: The pancreas is obscured by bowel gas. Otherwise unremarkable right upper quadrant ultrasound. Electronically signed by: Luis Bingham MD 08/28/2024 09:56 AM Garden Mate RP Medications Medications Current Medications Acetaminophen (Acetaminophen 325 Mg Tablet) 650 mg PO Q6H PRN PRN Reason: pain 1-10 Last Admin: 09/03/24 21:36 Dose: 650 mg Al Hydroxide/Mg Hydroxide (Magnesium Hydrox/Alum Hydrox 30 Ml Oral.Susp) 30 ml PO Q6H PRN PRN Reason: GI Upset Albuterol Sulfate (Albuterol Sulfate 90 Mcg 8 Gm Inhaler) 2 puff INHALE RQ4H PRN PRN Reason: Shortness of Breath/Wheezing Last Admin: 09/03/24 21:40 Dose: 2 puff Famotidine (Famotidine 20 Mg Tablet) 20 mg PO DAILY [facility] Last Admin: 09/04/24 08:24 Dose: 20 mg Hydroxyzine HCl (Hydroxyzine Hcl 25 Mg Tablet) 25 mg PO Q6H PRN PRN Reason: Anxiety Last Admin: 09/02/24 00:42 Dose: 25 mg Lidocaine (Lidocaine 4 % Patch Adh..Patch) 2 patch TRANSDERMA DAILY [facility]; Protocol Last Admin: 09/04/24 08:24 Dose: 2 patch Magnesium Hydroxide (Milk Of Magnesia 30 Ml Oral.Susp) 30 ml PO DAILY PRN PRN Reason: Constipation Mirtazapine (Mirtazapine 15 Mg Tablet) 15 mg PO BEDTIME [facility] Last Admin: 09/03/24 21:34 Dose: 15 mg Nicotine (Nicotine 21 Mg Patch.Td24) 21 mg TRANSDERMA DAILY [facility] Last Admin: 09/04/24 08:23 Dose: 21 mg Nicotine Polacrilex (Nicotine Polacrilex 2 Mg Gum) 4 mg BUCCAL Q2H PRN PRN Reason: Nicotine Cravings Last Admin: 09/03/24 21:40 Dose: 4 mg Olanzapine (Olanzapine 5 Mg Tablet) 5 mg PO TID PRN PRN Reason: agitation Last Admin: 09/03/24 12:53 Dose: 5 mg Trazodone HCl (Trazodone Hcl 50 Mg Tablet) 50 mg PO BEDTIME MRX1 PRN PRN Reason: Insomnia Last Admin: 09/02/24 00:42 Dose: 50 mg Trazodone HCl (Trazodone Hcl 50 Mg Tablet) 50 mg PO DAILY@2300 [facility] Last Admin: 09/03/24 23:15 Dose: 50 mg Allergies Allergies Allergy/AdvReac Type Severity Reaction Status Date / Time No Known Allergies Allergy Verified 08/28/24 01:09 Assessment & Plan Assessment & Plan (1) Adjustment reaction with mixed emotional features: Status: Acute Code(s): F43.29 - Adjustment disorder with other symptoms (2) Anxiety: Status: Acute Code(s): F41.9 - Anxiety disorder, unspecified (3) Suicide ideation: Status: Acute Code(s): R45.851 - Suicidal ideations (4) Abdominal pain: Status: Acute Code(s): R10.9 - Unspecified abdominal pain Plan Adjustment Reaction, mixed, SI, Anxiety, Abdominal pain. 08/30: Active on unit, social with peers. observing laughing and joking with peers. However, reports feeling anxious and depressed ; states he is having auditory hallucinations of a voices saying, I love you. Come back. Hurt yourself . He also reports suicidal ideation with no plan. denies HI/VH. Encouraged to attend groups and utilize PRN Zyprexa if needed. 08/31 Feels that he is overall doing better but still depressed and agrees to increase Remeron. Patient still very focused on struggles with his girlfriend and frustrations with her ex partner 09/01: Overall we discussed scheduling trazodone as that was helpful last night. Otherwise no med changes 09/02: lidocaine patches for back pain, otherwise no changes he 09/04: Awaiting placement options. Plan: Admit, CV, 15 minute checks Increase Remeron to 15 mg Diagnostics as needed Collateral Contact Encourage milieu Discharge planning Reason for continued inpatient stay Substantial Risk for: rapid decompensation Time Spent With Patient Time: Total time managing care of this patient today ____ minutes.
[2024-09-04] MEDS: Nicotine Polacrilex 2 MG GUM 4 MG BUCCAL ×4 (12:35→21:14)
[2024-09-04] MEDS: OLANZapine 5 MG TABLET PO (13:02)
[2024-09-04] MEDS: Albuterol Sulfate 90 MCG 8 GM INHALER 2 PUFF INHALE ×2 (16:55→21:15)
[2024-09-04] MEDS: hydrOXYzine HCL 25 MG TABLET PO (19:13)
[2024-09-04 20:00] VITALS: BP 132/78; PULSE 111; TEMP 37.9; O2SAT 97
[2024-09-04] MEDS: Acetaminophen 325 MG TABLET 650 MG PO (21:14)
[2024-09-04] MEDS: Mirtazapine 15 MG TABLET PO (21:48)
[2024-09-04] MEDS: traZODone HCL 50 MG TABLET PO (22:59)
[2024-09-05] MEDS: Famotidine 20 MG TABLET PO (08:49)
[2024-09-05] MEDS: Nicotine 21 MG PATCH.TD24 TRANSDERMA (08:49)
[2024-09-05] MEDS: Lidocaine 4 % Patch ADH..PATCH 2 PATCH TRANSDERMA (08:49)
[2024-09-05 09:47] VITALS: BP 114/75; PULSE 86; TEMP 36.8; O2SAT 97
--- NOTE | 2024-09-05 20:53 | PM.PSYDC ---
DS: Providers Provider Date of admission: 08/28/24 16:15 Primary care physician: Unknown Physician DS: Diagnosis Discharge Diagnosis (1) Adjustment reaction with mixed emotional features: Status: Acute (2) Anxiety: Status: Acute (3) Suicide ideation: Status: Acute (4) Abdominal pain: Status: Acute DS: Medications Discharge Medications Home Medications: Home Medications ?Medication ?Instructions ?Recorded ?Confirmed No Known Home Meds 08/28/24 08/28/24 Previous Rx's ?Medication ?Instructions ?Recorded albuterol sulfate 90 mcg/actuation 2 puff inhalation RQ4H PRN 09/05/24 aerosol inhaler (Ventolin HFA) Shortness Of Breath/Wheezing #1 inhaler famotidine 20 mg tablet 20 mg PO DAILY #30 tabs 09/05/24 lidocaine 4 % topical patch 2 patch transdermal DAILY #30 ea 09/05/24 (Lidocaine Pain Relief) mirtazapine 15 mg tablet 15 mg PO BEDTIME #30 tabs 09/05/24 nicotine (polacrilex) 2 mg gum 4 mg buccal Q2H PRN Nicotine 09/05/24 Cravings #110 ea nicotine 21 mg/24 hr daily 21 mg transdermal DAILY #30 ea 09/05/24 transdermal patch olanzapine 5 mg tablet 5 mg PO TID PRN agitation #30 tabs 09/05/24 trazodone 50 mg tablet 50 mg PO BEDTIME MRX1 PRN Insomnia 09/05/24 #30 tabs Data Imaging Diagnostic Imaging Impressions Chest X-Ray 08/28/24 09:24 IMPRESSION: Low lung volumes. No acute cardiopulmonary abnormality. Electronically signed by: Luis Bingham MD 08/28/2024 09:58 AM EST RP Abdomen Ultrasound 08/28/24 09:28 IMPRESSION: The pancreas is obscured by bowel gas. Otherwise unremarkable right upper quadrant ultrasound. Electronically signed by: Luis Bingham MD 08/28/2024 09:56 AM EST RP DS: Summary Time Spent with Patient Time attestation: Total time managing care of this patient today ____ minutes. Discharge Plan Discharge Anticipated Discharge Date/Time: 09/05/24 12:00 Patient Disposition: Prison Discharge Diagnosis: Mixed Adjustment Reaction Referrals: [facility] [Other] - 09/05/24 3:00 pm (Patient has a bed available for custodial placement today 09/05/24 ) Clinical and Support Options [Other] - 09/06/24 10:30 am (Patient must self present to [facility] on 09/06/24 for walk-in evaluation to establish for psychiatry and therapy services.) Physician,Unknown J [Primary Care Provider] - 1 Week Discharge Medications: New lidocaine [Lidocaine Pain Relief] 4 % Adhesive Patch,Medicated 2 patch transdermal DAILY Qty: 30 0RF Protocol: Apply to: Apply to: lower back trazodone 50 mg Tablet 50 mg PO BEDTIME MRX1 PRN (Reason: Insomnia) Qty: 30 0RF nicotine (polacrilex) 2 mg Gum 4 mg buccal Q2H PRN (Reason: Nicotine Cravings) Qty: 110 0RF olanzapine 5 mg Tablet 5 mg PO TID PRN (Reason: agitation) Qty: 30 0RF famotidine 20 mg Tablet 20 mg PO DAILY Qty: 30 0RF nicotine 21 mg/24 hr Patch 24 Hour 21 mg transdermal DAILY Qty: 30 0RF mirtazapine 15 mg Tablet 15 mg PO BEDTIME Qty: 30 0RF albuterol sulfate [Ventolin HFA] 90 mcg/actuation Hfa Aerosol Inhaler 2 puff inhalation RQ4H PRN (Reason: Shortness Of Breath/Wheezing) Qty: 1 0RF No Action No Known Home Meds Discharge Orders: Discharge Order (Routine); Ordered 09/05/24 Ordered By: Norma Ellington Diet: Advance to usual diet Activity on Discharge: As tolerated Stand Alone Forms: Patient Portal Discharge page Print Language: Telugu Care Plan Goals: Mood and Behavioral Stabilization Health Concerns: Mood and Behavioral Stabilization Plan of Treatment: Attend scheduled appointments Take medications as directed Assessment: No SI,HI, AH, VH Today, pt will [facility] to [facility]. Discharge Date/Time: 09/05/24 11:34
== END 2024-09-05 11:34 | disposition home or self-care (01) | DRG 755 ==
LOC: HO.ED 16:10 → HO.PM5 16:35
PROVIDERS: Physician Assistant; Admitting Provider Psychiatry & Neurology Psychiatry; Emergency Provider Emergency Medicine; Visit Provider Clinical Nurse Specialist Psychiatric/Mental Health, Adult
DX: F43.25 Adjustment disorder with mixed disturbance of emotions and conduct (principal); R45.851 Suicidal ideations; F41.9 Anxiety disorder, unspecified; R10.9 Unspecified abdominal pain; Z59.02 Unsheltered homelessness; Z79.899 Other long term (current) drug therapy
CPT/HCPCS: 36415; 71045; 76705; 80048; 80061; 80076; 80307; 81003; 83036; 83690; 83735; 84443; 84484; 85025; 93005; 99285; S9485

== ENCOUNTER → 2024-08-28 01:10 | Outpatient (BNV) | payer OTHER, SELFPAY | PROVIDERS: Emergency Provider Emergency Medicine; Visit Provider Internal Medicine Cardiovascular Disease | DX: R10.13 Epigastric pain (principal) | CPT/HCPCS: 93010 ==

== ENCOUNTER → 2024-08-28 08:05 | Outpatient (BNV) | payer OTHER, SELFPAY | PROVIDERS: Emergency Provider Emergency Medicine; Visit Provider Radiology Diagnostic Radiology | DX: R10.13 Epigastric pain (principal); R07.9 Chest pain, unspecified; R06.02 Shortness of breath | CPT/HCPCS: 71045; 76705 ==

== ENCOUNTER → 2024-08-28 16:15 | Outpatient (BNV) | payer OTHER, SELFPAY | PROVIDERS: Admitting Provider Psychiatry & Neurology Psychiatry; Emergency Provider Emergency Medicine; Visit Provider Clinical Nurse Specialist Psychiatric/Mental Health, Adult | DX: F43.29 Adjustment disorder with other symptoms (principal); F41.9 Anxiety disorder, unspecified; R45.851 Suicidal ideations; R10.9 Unspecified abdominal pain | CPT/HCPCS: 90792; 99231; 99232 ==

== ENCOUNTER → 2025-03-16 08:40 | Outpatient (BNV) | payer MEDICAID, SELFPAY | PROVIDERS: Emergency Provider Emergency Medicine; Visit Provider Radiology Diagnostic Radiology | DX: R05.9 Cough, unspecified (principal) | CPT/HCPCS: 71045 ==

== ENCOUNTER 2025-03-16 09:05 | Emergency (ER) | payer MEDICAID, SELFPAY ==
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
--- OUTSIDE RECORDS SUMMARY | 2025-03-14 10:00 | XMS_ITS ---
Author Organization [facility] Address [address] [place] [id number] Care Team Providers Care Psychologist Clinical Name Role Phone Stacey Thompson Primary Care Provider Tylor Moore Unavailable [phone] Reason For Referral Reason RCT #19 RCT #19 Referral Organization [facility] Referring Provider First Name Tylor Referring Provider Last Name Teresa Referring Provider Speciality [facility] Practice Referred Organization [facility] Referred Provider [facility] Referred Address [address] [place] [phone], Referred Provider [facility] Referral Priority Routine REASON FOR VISIT Dental - Initial Exam/fmx Medications Medication SIG (Take, Route, Frequency, Duration) Notes Start Date End Date Status ibuprofen 800 mg 1 tab(s) orally 3 times a day for 10 days 10/31/2024 Not-Taking Lidoderm 5% 1 PATCH applied topically once a day. On in the morning, off at night for 90 days Active meloxicam 15 mg 1 tab(s) orally once a day for 30 days As needed 02/05/2025 Active methocarbamol 500 mg 1 tab(s) orally 4 times a day for 10 days As needed 11/22/2024 Active ketoconazole topical 2% 1 adrian applied topically every 3 days for 21 days Not-Taking mirtazapine 15 mg 1 tab(s) orally once a day (at bedtime) for 30 days Please deliver to [facility] [address] [place] [address]. Active ARIPiprazole 5 mg 1 tab(s) orally once a day for 30 days please deliver to [facility] [address] [place] [address]. Active Albuterol (Eqv-ProAir HFA) 90 mcg/inh 2 INH inhaled every 6 hours Active Nicoderm C-Q Clear 21 mg/24 hr 1 PATCH transdermally every 24 hours Please deliver to [facility] [address] [place] [address] Active famotidine 20 mg 1 tab(s) orally 2 times a day for 30 days Active Nicorette Fruit Chill 4 mg 1 GUM by transmucosal administration every 2 hours Please deliver to [facility] [address] [place] [address] Active Social History Sex Assigned At : Social History Observation Description Sex Assigned At Male Vital Signs Temperature 98.7 degrees Fahrenheit 03/14/20 25 Height 68 in 03/14/2025 Oximetry 99 03/14/2025 Blood pressure systolic 114 03/14/20 25 Blood pressure diastolic 79 cp 025 Encounters Encounter Location Date Provider Diagnosis [address] [id number] 03/14/2025 Tylor Moore Plan Of Treatment Referrals Referral Date Details 03/14/2025 03/14/2025, RCT #19 RCT #19, Dental clinic [facility], [address] [place] [address], [phone], [facility], Next Appt Details Provider Name:Tylor López i, 03/19/2025 02:00:00 PM, [address] [place] [address], [phone], Provider Name:Alejandra Peterson, 04/03/2025 08:30:00 AM, [address] [place] [address], [phone], Provider Name:Stacye kenny, 04/03/2025 09:30:00 AM, [address] [place] [address], [phone], Progress Notes * Blaise TOLEDO EDOB:1 (29 yo M)Acc No.[id number]:03/14/2025 Dental Notes Patient: Shantel Blaise VILLALOBOS Provider: Loi Moore DDS :1995 A ge:29 Y S ex:Male Date:03/14/2025 Address:[address] [place], [place] [id number] Pcp:Stacey Thompson Subjective: * Chief Complaints: * 1 . Dental - Initial Exam/fmx. * Medical History: A nxiety disorder, Depression, Prediabetic, Anger and irritability issues, learning disabilities, Chronic back pain. * Medications: T aking Nicorette Fruit Chill 4 mg gum 1 GUM by transmucosal administration every 2 hours , Notes to Pharmacist: Please deliver to [facility] [address] [place] [address], Taking Nicoderm C-Q Clear 21 mg/24 hr film, extended release 1 PATCH transdermally every 24 hours , Notes to Pharmacist: Please deliver to [facility] [address], Taking mirtazapine 15 mg tablet 1 tab(s) orally once a day (at bedtime) , Notes to Pharmacist: Please deliver to [facility] [address], Taking ARIPiprazole 5 mg tablet 1 tab(s) orally once a day , Notes to Pharmacist: please deliver to [facility] [address] [place] [address]., Taking Albuterol (Eqv-ProAir HFA) 90 mcg/inh aerosol 2 INH inhaled every 6 hours , Taking famotidine 20 mg tablet 1 tab(s) orally 2 times a day , Taking meloxicam 15 mg tablet 1 tab(s) orally once a day As needed, Taking methocarbamol 500 mg tablet 1 tab(s) orally 4 times a day As needed, Taking Lidoderm 5% film 1 PATCH applied topically once a day. On in the morning, off at night , Not-Taking/PRN ketoconazole topical 2% shampoo 1 adrian applied topically every 3 days , Not-Taking/PRN ibuprofen 800 mg tablet 1 tab(s) orally 3 times a day Objective: * Vitals: B P Generic: 114/79 cp, Ht: 68, Oxygen sat %: 99, Temp: 98.7. * Dental Examination/Plan : Tooth / Surface Status Description Provider 11 DL TP Composite-Two surfaces, Anterior MN 03/14/2025 12 MOD TP Composite-Three Surfaces, Posterior MN 03/14/2025 13 MOD TP Composite-Three Surfaces, Posterior MN 03/14/2025 14 MO TP Composite-Two Surfaces, Posterior MN 03/14/2025 19 MO EO Composite-Two Surfaces, Posterior MN 03/14/2025 3 MO EO Composite-Two Surfaces, Posterior MN 03/14/2025 29 MO TP Composite-Two Surfaces, Posterior MN 03/14/2025 18 MOD TP Composite-Three Surfaces, Posterior MN 03/14/2025 4 DO TP Composite-Two Surfaces, Posterior MN 03/14/2025 Assessment: Plan: * Treatment: * Images: Billing Information: * Visit Code: * Procedure Codes: * Electronic signature of hSen Moore DMD on 03/16/2025 at 09:40 AM EDT Sign off status: Pending * Provider: Loi Moore DDS Date: 03/14/2025 Generated for Adan saha/Cb/Colt on: 03/16/2025 09:40 AM EDT Consultation Request Notes Referral Date Referring Provider Referred Provider Not es 03/14/2025 Tylor Moore [facility], Dental clinic RCT #19 RCT #19
--- NOTE | ~2025-03-16 | XR_ITS ---
CLINICAL HISTORY: cough 1 view chest x-ray Comparison: CR/SR - XR CHEST 1 VIEW - 08/28/24 09:57 EST Findings: Mild hypoinflation as before. Cardiac silhouette is within normal limits. No focal areas of consolidation. No pleural effusion or pneumothorax. IMPRESSION: Mild hypoinflation without acute infiltrate. This document has been electronically signed by: Wilfredo Ledezma MD on 03/16/2025 10:14:46
--- NOTE | 2025-03-16 09:14 | ECG_ITS ---
Test Reason : chest tightness Blood Pressure : */* mmHG Vent. Rate : 89 BPM Atrial Rate : 89 BPM P-R Int : 148 ms QRS Dur : 74 ms QT Int : 346 ms P-R-T Axes : 42 12 32 degrees QTcB Int : 420 ms Normal sinus rhythm Normal ECG When compared with ECG of 28-Aug-2024 02:15, No significant change was found Referred By: Ciro Mckinney Electronically Signed By: WILLIAN PAYAN
[2025-03-16 09:22] VITALS: BP 121/84; BP 126/78; PULSE 85; PULSE 87; RESP 18; TEMP 36.6; O2SAT 95; O2SAT 98; BMI 37.8
--- OUTSIDE RECORDS SUMMARY | 2025-03-16 09:40 | XMS_ITS | Encounter Summary ---
Author Organization [facility] Address [address] [place] [address] Care Team Providers Care Systems Architecture Analyst Name Role Phone Stacey Thompson PRACTICE PROFESSIONAL Primary Care Provider [phone] Encounter Details Date Type Department Care Team (Late st Contact Info) Description 11/22/2024 Lab Requisition [facility] - Main Lab [address] [facility] [place] [id number] Stacey Thompson, THERES[address] [place] [address] Obesity, unspecified; Dorsalgia, unspecified Social History Tobacco Use Types Packs/Day Years Used Date Smoking Tobacco: Never Assessed Sex and Gender Information Value Date Recorded Sex Assigned at Not on file Legal Sex Male 11:50 AM EST Gender Identity Not on file Sexual Orientation Not on file documented as of this encounter Plan of Treatment Not on file documented as of this encounter Procedures Procedure Name Priority Date/Time Associated Diagnosis Comments URINALYSIS WITH REFLEX MICROSCOPIC Routine 11/22/2024 12:03 PM EDT Obesity, unspecified Dorsalgia, unspecified URINALYSIS WITH REFLEX MICROSCOPIC Routine 11/22/2024 12:03 PM EDT Obesity, unspecified Dorsalgia, unspecified MICROALBUMIN CREATININE URINE RATIO Routine 11/22/2024 12:03 PM EDT Obesity, unspecified Dorsalgia, unspecified MAGNESIUM Routine 11/22/2024 12:03 PM EDT Obesity, unspecified Dorsalgia, unspecified HEMOGLOBIN A1C Routine 11/22/2024 12:03 PM EDT Obesity, unspecified Dorsalgia, unspecified VITAMIN B12 Routine 11/22/2024 12:03 PM EDT Obesity, unspecified Dorsalgia, unspecified documented in this encounter Results * Urinalysis with reflex microscopic (11/22/2024 12:03 PM EDT) Pathologist [facility] Specific [facility]ix Urine 1.023 1.003 - 1.030 LAB URINALYSIS - AUTOMATED METHOD 11/22/2024 4:49 PM [facility] pH, Urine 6.0 5.0 - 8.0 pH LAB URINALYSIS - AUTOMATED METHOD 11/22/2024 4:49 PM [facility] Leukocytes, Urine Negative Negative LAB URINALYSIS - AUTOMATED METHOD 11/22/2024 4:49 PM [facility] Nitrite, Urine Negative Negative LAB URINALYSIS - AUTOMATED METHOD 11/22/2024 4:49 PM [facility] Protein, Urine Negative <=Trace mg/dL LAB URINALYSIS - AUTOMATED METHOD 11/22/2024 4:49 PM [facility] Glucose, Urine Negative Negative mg/dL LAB URINALYSIS - AUTOMATED METHOD 11/22/2024 4:49 PM [facility] Ketones, Urine Negative Negative mg/dL LAB URINALYSIS - AUTOMATED METHOD 11/22/2024 4:49 PM [facility] Urobilinogen, Urine 1.0 0.2 - 1.0 mg/dL LAB URINALYSIS - AUTOMATED METHOD 11/22/2024 4:49 PM [facility] Bilirubin, Urine Negative Negative LAB URINALYSIS - AUTOMATED METHOD 11/22/2024 4:49 PM [facility] Blood, Urine Negative Negative LAB URINALYSIS - AUTOMATED METHOD 11/22/2024 4:49 PM EDT [facility] Urine Urine specimen obtained by clean catch procedure / Unknown 11/22/2024 12:03 PM EDT 11/22/2024 4:38 PM EDT [facility] PRACTICE PROFESSIONAL LAB URINE ORDERABLES Final Result Performing Organization Address City/[facility]/ZIP Co de Phone Number [facility] [address] [place] [address], [place] [phone] * Vitamin B12 (11/22/2024 12:03 PM EDT) Vitamin B-12 478 250 - 900 pcg/mL LAB CHEMISTRY METHOD 11/22/2024 5:52 PM EDT [facility] Blood Venous blood specimen / Unknown 11/22/2024 12:03 PM EDT 11/22/2024 4:38 PM EDT [facility] BLOOD ORDERABLES Final Result Performing Organization Address City/[facility]/ZIP Co de Phone Number [facility] [address] [place] [address], [place] [phone] * Microalbumin creatinine urine ratio (11/22/2024 12:03 PM EDT) Creatinine, Urine 150.0 mg/dL LAB CHEMISTRY METHOD 11/22/2024 7:41 PM EDT [facility] Microalb, Ur 13.1 0.0 - 29.0 mg/L LAB CHEMISTRY METHOD 11/22/2024 7:41 PM EDT [facility] Microalb/Creat Ratio 9 <30 mg/g creat LAB CHEMISTRY METHOD 11/22/2024 7:41 PM EDT [facility] Urine Urine specimen obtained by clean catch procedure / Unknown 11/22/2024 12:03 PM EDT 11/22/2024 4:38 PM EDT us Eddieliza Casionan PRACTICE PROFESSIONAL LAB URINE ORDERABLES Final Result [facility] [address] [place] [address], [place] [phone] * Magnesium (11/22/2024 12:03 PM EDT) Pathologist [facility] Magnesium 2.2 1.9 - 2.6 mg/dL LAB CHEMISTRY METHOD 11/22/2024 5:28 PM EDT [facility] Blood Venous blood specimen / Unknown 11/22/2024 12:03 PM EDT 11/22/2024 4:38 PM EDT Eddieliza Casionan PRACTICE PROFESSIONAL LAB BLOOD ORDERABLES Final Result Performing Organization Address [facility]/ZIP Co de Phone Number [facility] [address] [place] [address], [place] [phone] * Hemoglobin A1c (11/22/2024 12:03 PM EDT) [facility] Hemoglobin A1C 5.4 <6.5 % LAB CHEMISTRY METHOD 11/22/2024 10:17 PM EDT [facility] Mean Bld Glu Estim. 108 mg/dL LAB CHEMISTRY METHOD 11/22/2024 10:17 PM EDT [facility] Blood Venous blood specimen / Unknown 11/22/2024 12:03 PM EDT 11/22/2024 4:38 PM EDT Eddieliza Casionan PRACTICE PROFESSIONAL LAB BLOOD ORDERABLES Final Result Performing Organization Address [facility]/ZIP Co de Phone Number [facility] [address] [place] [address], [place] [phone] documented in this encounter Visit Diagnoses Diagnosis Obesity, unspecified Dorsalgia, unspecified documented in this encounter Care Teams Systems Architecture Analyst Relationship Specialty Start Date End Date Stacey Thompson NP [address] [place] [address] PCP - General Family Medicine 11/26/24 documented as of this encounter
[2025-03-16 10:00] VITALS: BP 124/74; PULSE 85; RESP 15; TEMP 36.9; O2SAT 100
--- NOTE | 2025-03-16 10:04 | ED_ITS ---
HPI - URI/Sore Throat General Chief Complaint: Upper Respiratory Symptoms Stated Complaint: BODY PAIN,CONGESTED,FROM [facility] RET[facility]MENT PER EMS Time Seen by Provider: 03/16/25 09:49 Source: patient and EMS Mode of arrival: EMS Limitations: no limitations History of Present Illness ED Provider: Nirmala Navarrete APRN HPI Narrative: 29yo male with a history of anxiety, depression, ADHD, asthma presents to the ER with complaints of cough, congestion, body aches, nausea, headache since yesterday. Patient denies any fevers, chills, vomiting, diarrhea, chest pain, shortness of breath. Patient reports he does smoke cigarettes. Denies any substance use. Related Data Home Medications ?Medication ?Instructions ?Recorded ?Confirmed No Known Home Meds 08/28/24 08/28/24 Previous Rx's ?Medication ?Instructions ?Recorded albuterol sulfate 90 mcg/actuation 2 puff inhalation R Q4H PRN 09/05/24 aerosol inhaler (Ventolin HFA) Shortness Of Breath/Whe ezing #1 inhaler famotidine 20 mg tablet 20 mg PO DAILY #30 tabs 08/25 09/18 lidocaine 4 % topical patch 2 patch transdermal DAILY #30 ea 09/05/24 (Lidocaine Pain Relief) mirtazapine 15 mg tablet 15 mg PO BEDTIME #30 tabs nicotine (polacrilex) 2 mg gum 4 mg buccal Q2H PRN Morales otine 09/05/24 Cravings #110 ea nicotine 21 mg/24 hr daily 21 mg transdermal DAILY #30 ea 09/05/24 transdermal patch olanzapine 5 mg tablet 5 mg PO TID PRN agitation #3 0 tabs 09/05/24 trazodone 50 mg tablet 50 mg PO BEDTIME MRX1 PRN In somnia 09/05/24 #30 tabs Allergies Allergy/AdvReac Type Severity Reaction Status Date / Time No Known Allergies Allergy Verified 03/16/25 09:25 Review of Systems Review of Systems: Yes all other systems are reviewed and are negative Constitutional: Constitutional: Reports no additional constitutional complaints, Reports body ache(s), Denies chills, Denies fever(s), Reports headache(s) and Denies weakness Eyes: Eyes: Reports no additional eye complaints and Denies change in vision ENT: Reports system reviewed and no additional complaints, except as documented, Denies dizziness, Reports headache(s), Reports nasal congestion, Denies nasal discharge and Denies neck pain Cardiovascular: Cardiovascular: Reports no additional cardiovascular complaints, Denies chest pain, Denies leg edema and Denies dyspnea Respiratory: Respiratory: Reports no additional respiratory complaints, Reports cough and Denies dyspnea Gastrointestinal: Gastrointestinal: Reports no additional gastrointestinal complaints, Denies abdominal pain, Denies diarrhea, Reports nausea and Denies vomiting Genitourinary: Genitourinary: Denies urinary incontinence Musculoskeletal: Musculoskeletal: Reports no additional musculoskeletal complaints, Denies back pain, Denies arthralgias, Denies joint swelling, Denies neck pain, Denies numbness and Denies tingling Integumentary/Breasts: Skin/Breast: Reports system reviewed and no additional complaints, except as docu and Denies rash Neurologic: Reports system reviewed and no additional complaints, except as documented, Denies Abnormal speech present, Denies dizziness, Reports headache(s), Denies numbness, Denies tingling and Denies weakness PMF Past Medical History Attestation statement: The following information was validated with the patient. Source: old records reviewed and nursing notes reviewed Medical History Depression Anxiety ADHD Social History Social History Household Members: None Housing: Homeless Do you presently have visiting nurse or other home services: No Alcohol intake: current Alcohol intake frequency: holidays/special occasions only Patient Tobacco Use Status: Former Tobacco user Tobacco use type: Cigarette Advance Directives: No Advance Directives Information Provided: Yes service: No Sexual orientation: Straight/Heterosexual Physical Exam Vital Signs: Vital Signs: Last Vital Signs Temp 98.5 F 03/16/25 10:00 Pulse 85 03/16/25 10:00 Resp 15 03/16/25 10:00 BP 124/74 03/16/25 10:00 Pulse Ox 100 03/16/25 10:00 O2 Del Method Room Air 03/16/25 10:00 BMI result Body Mass Index 37.8 Const: General: cooperative, healthy appearing, comfortable and no acute distress Orientation/consciousness: patient oriented x3 Limitations: no limitations HEENT: Head: Yes normal to inspection Ears: hearing grossly normal bilaterally and TM's normal bilaterally General nose exam: Normal external nose present Face and sinus: Yes normal facial exam Mouth: Normal oral and palatal mucosa present Throat: Yes posterior oropharynx normal, Yes tonsils normal and Yes uvula midline Eyes: General: appearance normal, both eyes and all related structures Pupils: Equal, round and reactive pupils present Neck: Neck: Yes normal visual inspection, Yes full ROM, Yes no lymphadenopathy and Yes no meningeal signs Chest: Chest palpation & inspection: normal inspection of the chest Resp: Effort & Inspection: normal respiratory effort Auscultation: clear to auscultation bilaterally Cardio: Rate: regular rate Rhythm: regular rhythm Peripheral pulses: Peripheral pulses 2+ throughout GI: Inspection: Yes normal to inspection Palpation (GI): Soft to palpation and nontender Auscultation: normal bowel sounds Back/Spine/Pelvis: Thoracic/Lumbar Spine: thoracic and lumbar spine normal to inspection Skin: General skin exam: no rashes or lesions noted Neuro: General: patient oriented x3, no meningeal signs, no focal motor deficits and normal sensation to monofilament Cranial nerves: Yes Equal, round and reactive pupils present Cognition (Neuro): normal cognition S peech: No Abnormal speech present Gait exam (Neuro): Normal gait present Motor exam (neuro): 5/5 motor strength present throughout Extrem: General: Yes normal to inspection Medical Decision Making Medical Decision Making [facility] Narrative: 29yo male with a history of anxiety, depression, ADHD, asthma presents to the ER with complaints of cough, congestion, body aches, nausea, headache since yesterday. Patient denies any fevers, chills, vomiting, diarrhea, chest pain, shortness of breath. Patient reports he does smoke cigarettes. Denies any substance use. Exam is benign. Vitals stable. Will obtain viral testing and chest x-ray Differential Diagnosis Differential Diagnoses: The differential diagnosis associated with the presentation includes viral syndrome, influenza Admission/Observation Consideration of admission/observation: Escalation of care including admission/observation considered Viral testing negative, CXR negative. VSS. Likely viral syndrome. Patient to be discharged with supportive meaures. Lab Data [facility] Lab Attestation statement: I reviewed the patient's lab results. Labs: Lab Results 03/16/25 Range/Units 09:28 Influenza Type A (PCR) NEGATIVE (Negative) Influenza Type B (PCR) NEGATIVE (Negative) RSV RNA Qual (PCR) NEGATIVE (Negative) SARS-CoV-2 RNA (RT-PCR) NEGATIVE (Negative) Independent Interpretation I performed an independent interpretation of an: Plain X-Ray Interpretation: I independently viewed the x-ray and agree with the radiology report Radiology Impression Discussion of test interpretation with radiology: I have reviewed the radiologist's reading. Radiologist Impression: [address] [address] XRay Report Signed Patient: Blaise Toledo MR#: [id number] : 1995 Acct:[id number] Age/Sex: 29 / M ADM Date: 03/16/25 Loc: HO.ED Attending Dr: Ordering Physician: Ciro Mckinney MD Date of Service: 03/16/25 Procedure(s): XR chest 1V Accession Number(s): [id number] cc: Ciro Mckinney MD; Physician,Unknown ~ CLINICAL HISTORY: cough 1 view chest x-ray Comparison: CR/SR - XR CHEST 1 VIEW - 08/28/24 09:57 EST Findings: Mild hypoinflation as before. Cardiac silhouette is within normal limits. No focal areas of consolidation. No pleural effusion or pneumothorax. IMPRESSION: Mild hypoinflation without acute infiltrate. Independent Historian Clinical information obtained from an independent historian. History obtained from or confirmed by: EMS Discharge Plan Discharge Clinical Impression: Viral infection Patient Disposition: Home, Self-Care Instructions: Viral Syndrome (ED) Additional Instructions: Your x-ray shows no signs of pneumonia Your testing for flu, COVID and RSV are negative You likely have a viral infection Take Motrin or Tylenol for pain or fever as needed Increase fluids, rest Follow-up with your primary care doctor for any continued symptoms Prescriptions: No Action No Known Home Meds lidocaine [Lidocaine Pain Relief] 4 % Adhesive Patch,Medicated 2 patch transdermal DAILY Qty: 30 0RF Protocol: Apply to: Apply to: lower back trazodone 50 mg Tablet 50 mg PO BEDTIME MRX1 PRN (Reason: Insomnia) Qty: 30 0RF nicotine (polacrilex) 2 mg Gum 4 mg buccal Q2H PRN (Reason: Nicotine Cravings) Qty: 110 0RF olanzapine 5 mg Tablet 5 mg PO TID PRN (Reason: agitation) Qty: 30 0RF famotidine 20 mg Tablet 20 mg PO DAILY Qty: 30 0RF nicotine 21 mg/24 hr Patch 24 Hour 21 mg transdermal DAILY Qty: 30 0RF mirtazapine 15 mg Tablet 15 mg PO BEDTIME Qty: 30 0RF albuterol sulfate [Ventolin HFA] 90 mcg/actuation Hfa Aerosol Inhaler 2 puff inhalation RQ4H PRN (Reason: Shortness Of Breath/Wheezing) Qty: 1 0RF Referrals: Physician,Unknown J [Primary Care Provider, Medical] Print Language: Unable To Collect
[2025-03-16 10:25] LABS: Resp Syncy Virus RNA Qual PCR NEGATIVE (Negative); SARS COV2 PCR INHOUSE NEGATIVE (Negative)
--- NOTE | 2025-03-16 10:25 | PC.NURSE ---
patient a&ox3, cxr performed, swab obtained, vss, pt awaiting provider
[2025-03-16 11:27] VITALS: BP 122/76; PULSE 83; RESP 16; TEMP 36.8; O2SAT 98
== END 2025-03-16 11:28 | disposition home or self-care (01) ==
PROVIDERS: Emergency Provider Emergency Medicine
DX: B34.9 Viral infection, unspecified (principal); F90.9 Attention-deficit hyperactivity disorder, unspecified type; J45.909 Unspecified asthma, uncomplicated; Z79.899 Other long term (current) drug therapy
CPT/HCPCS: 71045; 87637; 93005; 99283; 99284

== ENCOUNTER → 2025-03-16 09:14 | Outpatient (BNV) | payer MEDICAID, SELFPAY | PROVIDERS: Emergency Provider Emergency Medicine; Visit Provider Internal Medicine | DX: R07.89 Other chest pain (principal) | CPT/HCPCS: 93010 ==